=== PATIENT | male | born 1945 | race Caucasian/White ===

== ENCOUNTER → 2023-06-12 08:02 | Outpatient (REF) | payer OTHER, SELFPAY | LOC: DHCBS HW 08:02 | PROVIDERS: ATTENDING PHYSICIAN Nuclear Medicine Nuclear Cardiology; FAMILY PHYSICIAN Family Medicine | DX: I35.0 Nonrheumatic aortic (valve) stenosis (principal); I10 Essential (primary) hypertension | CPT/HCPCS: 93306 ==

== ENCOUNTER → 2023-06-19 08:14 | Outpatient (REF) | payer OTHER, SELFPAY | LOC: RAD 08:14 | PROVIDERS: ATTENDING PHYSICIAN Nuclear Medicine Nuclear Cardiology; FAMILY PHYSICIAN Family Medicine | DX: I77.9 Disorder of arteries and arterioles, unspecified (principal) | CPT/HCPCS: 93880 ==

== ENCOUNTER → 2024-01-01 07:44 | Outpatient (REF) | payer OTHER, SELFPAY | LOC: HWRCS 07:44 | PROVIDERS: ATTENDING PHYSICIAN Nuclear Medicine Nuclear Cardiology; FAMILY PHYSICIAN Family Medicine | DX: I10 Essential (primary) hypertension (principal); I35.0 Nonrheumatic aortic (valve) stenosis | CPT/HCPCS: 93306 ==

== ENCOUNTER → 2024-02-16 06:38 | Day surgery (SDC) | payer OTHER, SELFPAY ==
--- NOTE | 2024-02-17 09:00 | ITS.CL.CARDI ---
Care Coordinator - Cardioversion
Cardioversion
Procedure Report:
Cardioversion
Procedure Report:
Date of Procedure: 02/16/24
Procedure: Cardioversion
Indication: Symptomatic atrial fibrillation
Performing Physician: Earlene Noyola DO [facility]
Anticoagulation: Xarelto
Technique: The patient was brought to the holding area. Signed informed consent was obtained. A time out was called and performed. The patient was anesthetized by the anesthesia service. Anticoagulation status was reviewed and appropriate. R2 pads
were placed anteriorly and posteriorly. A 200 J synchronized biphasic shock restored normal sinus rhythm without significant bradycardia. There were no complications.
Conclusion: Uncomplicated cardioversion from atrial fibrillation to sinus rhythm.
Recommendation: Routine post cardioversion care. Continue intermodal dispatcher anticoagulation.
== END ==
LOC: CATH 06:38
PROVIDERS: ATTENDING PHYSICIAN Internal Medicine Cardiovascular Disease; FAMILY PHYSICIAN Family Medicine; OTHER PHYSICIAN Nuclear Medicine Nuclear Cardiology
DX: I48.0 Paroxysmal atrial fibrillation (principal); R06.02 Shortness of breath; I35.0 Nonrheumatic aortic (valve) stenosis; I10 Essential (primary) hypertension; E78.5 Hyperlipidemia, unspecified; E11.9 Type 2 diabetes mellitus without complications; Z86.73 Personal history of transient ischemic attack (TIA), and cerebral infarction without residual deficits; Z79.82 Long term (current) use of aspirin; Z79.01 Long term (current) use of anticoagulants
CPT/HCPCS: 92960; 93005

== ENCOUNTER 2024-02-17 10:29 | Inpatient (IN) | payer OTHER, SELFPAY ==
[2024-02-17] VITALS (8 sets, daily range): BP systolic 118–179; BP diastolic 38–87; BMI 43.5; BMI 40.8
--- NOTE | 2024-02-17 08:24 | ED.GENMED ---
History of Present Illness
General
Chief Complaint: Breathing Problem
Time Seen by Provider: 02/17/24 08:17
History of Present Illness
History of Present Illness:
78-year-old male with history of CHF, hypertension, hyperlipidemia, and aortic stenosis presents to the emergency department for evaluation of shortness of breath. He reports having a dry cough for the majority of the week but over the past 24
hours shortness of breath is increased. Denies chest pain. Tactile fevers last night. Of note the patient underwent a cardioversion at this hospital yesterday and has been off his furosemide for 1 week as a result. Is anticoagulated on Xarelto.
Denies any leg swelling.
Past History
Past History
ED Past Medical History: HTN, Hypercholesterolemia, Valvular disease and Other (prostate)
ED Past Surgical History: Other (Hernia/fistulectomy)
Social History
Tobacco: Non-smoker
Personal:
Living: with family
Employment: Retired
Review of Systems
Review of Systems
Allergies reviewed?: Yes
All Other Systems: ROS reviewed and negative except as documented in HPI and ROS
Phy Exam
Physical Exam
Physical Exam:
GEN: Well appearing, NAD, WDWN
HEENT: Oral mucosa moist, no scleral icterus
Cardiac: Mildly tachycardic, slight irregularity, systolic murmur noted
Lung: Tachypneic, no accessory muscle use, clear upper tavares, bibasilar crackles noted
MSK: No gross deformity or injuries
Skin: Good color, no pallor or jaundice, no rashes
Neuro: AO x3, moves all extremities freely
Psych: Calm, cooperative
Scores
Heart Failure Risk
Heart Failure Risk Score: Yes
History of Stroke or TIA: No
History of intubation for respiratory distress: No
Heart rate on ED arrival >/= 110: Yes
SaO2 <90% on arrival on room air: Yes
HR >/=110 during 3min walk test (or too ill to perform test): Yes
ECG has acute ischemic changes: No
Urea >/=12mmol/L (BUN 33.6mg/dL): No
Serum CO2>/=35mmol/L: No
Troponin I or T elevated to [place] Level (0.4mg/dL): Yes
NT-proBNP >/=5,000ng/L (5,000pg/ml): No
HF Risk Score: 5
Admission Status: VERY HIGH RISK 39.8% Consider admission to hospital
Course
Orders/Labs/Results
Orders:
Orders
02/17/24 08:20
Electrocardiogram (*1) Urgent
Reason for Study: Chest Pain
EKG- Treatment ONCE
02/17/24 08:22
Complete Blood Count/With Diff Urgent
Comprehensive Metabolic Panel Urgent
NT-proBNP Urgent
Troponin I Urgent
02/17/24 08:24
CR Chest - 2 Views Urgent
Comment:
Reason For Exam: SOB
02/17/24 08:26
COVID-19 Antigen Urgent
Source: Nasal Swab
Influenza A+B Rapid Molecular Urgent
RACH Source: Nasal Swab
Specimen Description:
02/17/24 08:27
Add On- LAB Urgent
Tests Added?: troponin
02/17/24 08:54
Furosemide [Lasix] 40 mg IV NOW STA
02/17/24 Lunch
Regular
At Your Request: Full Participation
02/17/24 10:14
Admit/Transfer Patient As Directed
Co-Sign Provider:
Level of Care: Inpatient admission
Assign to:: IVU
Physician / Group: Lisa
Diagnosis: Acute CHF
Reason for Hospitalization: IV Lasix, cardiology consult
Expected length of stay greater than two midnights?: Yes
ELOS- Estimated Length of Stay in days: 3
I certify the patient meets the requirements for IP care: Yes
PRN Pain Medication Management As Directed
May give lesser potent ordered pain med per pt: Yes
preference::
Protocol:: Medication orders for pain may be administered in a
manner that supports deferring to patient preference
when the pt is:
- Requesting an ordered lesser potent pain medication.
Least to most potent pain medications are defined
as: acetaminophen < NSAID < tramadol < opioids
(morphine, oxycodone, hydromorphone).
- Requesting a lesser dose of the same medication IF
ORDERED.
- Requesting a less intrusive route of administration
if both routes are prescribed by the provider (PO <
IV).
02/17/24 10:16
Code Status As Directed
Resuscitation Status: Full Code
02/17/24 14:57
Acetaminophen [Tylenol] 650 mg PO Q6HPRN PRN
Guaifenesin [Mucinex] 600 mg PO NOW STA
02/17/24 14:57
CARDIOLOGY CONSULT Routine
Consulting Provider: Fish Nielson
Was physician already notified: Yes
Activity As Directed
Activity Level: With Assistance
I&O [Intake/ Output] As Directed
Frequency: q12h
Acapella [Rx Pep / Acapela] [RESP] Routine
02/17/24 15:39
Troponin I Q6H
02/17/24 16:00
Furosemide [Lasix] 40 mg IV BID AT 0800,1600
02/17/24 18:00
Rivaroxaban [Xarelto] 20 mg PO QPM
02/17/24 20:00
Guaifenesin [Mucinex] 600 mg PO Q12
02/17/24 20:57
Troponin I Q6H
02/18/24 02:57
Troponin I Q6H
02/18/24 06:00
BMP [Basic Metabolic Panel] IN AM
02/19/24 06:00
BMP [Basic Metabolic Panel] IN AM
02/20/24 06:00
BMP [Basic Metabolic Panel] IN AM
02/20/24 11:00
DC Protocol for Telemetry ONCE
Abnormal Lab Results
02/17/24
08:22
MCHC 32.6 L g/dL
(33.0-37.0)
Absolute Lymphs (auto) 0.6 L 10^3/uL
(1.2-3.4)
Neutrophils % 80.2 H %
(42.2-75.2)
Lymphocytes % 9.7 L %
(20.5-51.1)
Glucose 129 H mg/dl
(70-99)
Troponin I 0.067 H* ng/ml
02/17/24 08:22
02/17/24 08:22
Vital Signs
Initial and Last Documented VS:
Initial Vital Signs
Temp Pulse Resp Pulse Ox
99 F 106 26 90
02/17/24 08:15 02/17/24 08:15 02/17/24 08:15 02/17/24 08:15
Last Documented Vital Signs
Temp Pulse Resp BP Pulse Ox
98.2 F 86 24 160/81 97
02/17/24 15:05 02/17/24 15:00 02/17/24 15:05 02/17/24 15:05 02/17/24 16:14
MDM/Problems Addressed
MDM/Problems Addressed:
78-year-old male presents with acute shortness of breath. Found to be in acute decompensated CHF evidenced by bibasilar crackles, elevated troponin and BNP, and pulmonary edema/vascular congestion on chest x-ray. Patient had been off Lasix for
several days leading up to ED visit today. Will admit as he is requiring supplemental oxygen, not appropriate for outpatient management. Avoiding nitrates despite his hypertension due to history of moderate aortic stenosis.
Comment
Comment:
EKG independently interpreted by me shows a normal sinus rhythm at a rate of 86, LVH changes suggested by lateral T wave inversions, left bundle branch block noted
*Critical Care Note
Total Time (30-74mins, 75-104mins- exclusive of procedures): Not Applicable
ED Attending Note
-
Portions of this chart may have been created with voice recognition software.� Occasional wrong word or��sound alike� substitutions may have occurred due to the inherent limitations of voice recognition software.
Discharge Plan
Departure
Patient Disposition: Admit
Date of Disposition: 02/17/24
Time of Disposition: :
Admit to: Telemetry
Presentation/result/management discussed w/ accepting MD/DO: Hospitalist
Discharge Problem:
Acute heart failure with preserved ejection fraction (HFpEF)
Interventions
Interventions:
*Risk Screen - Suicide Last Done: 02/17/24 15:43
*General Assessment Last Done: 02/17/24 08:15
*Neglect/Abuse Screening Last Done: 02/17/24 08:15
*ED COVID-19 Vaccine History Last Done: 02/17/24 08:27
*Nursing Disposition Last Done: 02/17/24 15:08
ED- Cardiac Assessment Last Done: 02/17/24 10:00
ED- Pulmonary Assessment Last Done: 02/17/24 10:00
Discharge Date and Time
Discharge Date/Time: 02/17/24 15:09
[2024-02-17 08:30] LABS: % Basophils 0.7 % (0-2); % Eosinophils 1.4 % (0-6); % Immature Granulocytes 0.4 % (0-0.5); % Lymphocytes 9.7 % (20.5-51.1); % Monocytes 7.6 % (1.7-9.3); % Neutrophils 80.2 % (42.2-75.2); Absolute Eosinophils 0.1 10^3/uL (0-0.7); Absolute Lymphocytes 0.6 10^3/uL (1.2-3.4); Absolute Monocytes 0.4 10^3/uL (0.1-0.6); Absolute Neutrophils 4.6 10^3/uL (1.4-6.5); Hematocrit 43.6 % (39.0-52.0); Hemoglobin 14.2 g/dL (13.0-18.0); Mean Corp Hgb Conc. 32.6 g/dL (33.0-37.0); Mean Corpuscular Hgb 27.4 pg (27.0-31.0); Mean Corpuscular Volume 84.2 fL (80.0-94.0); Mean Platelet Volume 8.9 fL (7.4-10.4); Nucleated Red Blood Cells % 0 % (-); Platelet Count 199 10^3/uL (130-400); Red Blood Cell Count 5.18 10^6/uL (4.70-6.10); White Blood Cell Count 5.7 10^3/uL (4.8-10.8)
[2024-02-17 08:40] LABS: ALT (SGPT) 22 U/L (0-50); AST (SGOT) 30 U/L (17-59); Albumin 3.9 g/dl (3.5-5.0); Alkaline Phosphatase 114 U/L (38-126); Blood Urea Nitrogen 20 mg/dl (9-20); Calcium 9.1 mg/dl (8.4-10.2); Carbon Dioxide 26 mmol/L (22-30); Chloride 103 mmol/L (98-107); Estimated Creatinine Clearance 84 ml/min; Glucose 129 mg/dl (70-99); Potassium 4.2 mmol/L (3.5-5.1); Sodium 137 mmol/L (135-145); Total Bilirubin 1.2 mg/dl (0.2-1.3); Total Protein 6.8 g/dl (6.3-8.2); eGFR > 60.00
[2024-02-17 08:54] LABS: NT-proBNP 2260 pg/ml; Troponin I 0.067 ng/ml
[2024-02-17] MEDS: LASIX 40 MG IV ×2 (09:06→15:53)
[2024-02-17 09:17] LABS: COVID-19 Antigen Negative (Negative)
--- NOTE | 2024-02-17 10:19 | HPS.HSE ---
Family Physician
-
Family Physician: Keyla Perez
Chief Complaint
-
Shortness of breath, cough
History of Present Illness
78-year-old male here complaining of shortness of breath for the past 24 hours. Just had a cardioversion yesterday and felt okay but subsequently developed shortness of breath at home. Not clear why he has been off Lasix all week.
Also complaining of cough for the past week. Denies any sick contacts.
Medical History
Past Medical History
Past Medical History: Reports Other
Additional Past Medical History:
Moderate to severe aortic stenosis
Paroxysmal atrial fibrillation
Hyperlipidemia
Essential hypertension
TIA
BPH
DM2
Past Surgical History: Reports Other
Additional Past Surgical History:
Hernia repair
Fistulectomy as a teenager
Social History
Tobacco: Former Smoker
Alcohol: Occasional
Drug: None
Personal:
Living: With Family
Family History
Family History: Not pertinent
Allergies / Home Medications
Allergies reflects when Allergies were last updated in [facility].
Home Medications with original date entered in [facility]
Allergy/Medication List:
Allergies
Allergy/AdvReac Type Severity Reaction Status Date / Time
NKA - No Known Allergies Allergy Unknown Uncoded 02/17/24 08:19
Home Medications
aspirin 81 mg tablet,delayed release 81 mg PO QPM Blood clot prevention/tx 11/19/13
terazosin 5 mg capsule 5 mg PO DAILY Blood pressure 11/19/13
calcium polycarbophil 625 mg tablet (Fiber-Tabs) 625 mg PO HS Constipation 09/01/18
cholecalciferol (vitamin D3) 25 mcg (1,000 unit) tablet 1,000 units PO DAILY Supplement 09/01/18
carvedilol 12.5 mg tablet 12.5 mg PO BID Blood pressure 12/26/20
finasteride 5 mg tablet 5 mg PO DAILY Urinary issue 12/26/20
valsartan 80 mg tablet 320 mg PO DAILY Blood pressure 12/26/20
rivaroxaban 20 mg tablet (Xarelto) 20 mg PO QPM Blood clot prevention/tx #30 tabs 12/29/20
multivit,calcium,min-folic acid 240 mcg-D3 25 mcg-lycop 300 mcg tablet (One A Day Men Complete) 1 tab PO DAILY 03/17/23
atorvastatin 20 mg tablet 40 mg PO QPM High cholesterol 02/16/24
Review of Systems
-
History Source: Patient
A 12 point ROS was completed and negative except as noted: Yes
Physical Exam
Vital Signs
Vital Signs
Temp Pulse Resp BP Pulse Ox
99 F 106 26 179/87 96
02/17/24 08:15 02/17/24 08:15 02/17/24 08:15 02/17/24 08:20 02/17/24 08:20
Physical Exam
General: Well Developed, Well Nourished and Respiratory Distress
HEENT: NormoCephalic, Anicteric and Moist mucous membranes
Respiratory: Rales and Decreased Breath Sounds
Cardiac: S1/S2 and Regular Rhythm
GI: Soft, Non Tender and Non Distended
Genito-urinary: Deferred by me
Musculoskeletal: No Clubbing, No Cyanosis, Edema, Left Lower Extremity and Edema, Right Lower Extremity
Skin: Warm and Dry
Neuro: AO x 3
Hematologic/Lymphatic: No Lymphadenopathy
Psych: Calm
Laboratory Results
-
02/17/24 08:22
02/17/24 08:22
Laboratory Results
Total Bilirubin 1.2 mg/dl (0.2-1.3) 02/17/24 08:22
AST 30 U/L (17-59) 02/17/24 08:22
ALT 22 U/L (0-50) 02/17/24 08:22
Alkaline Phosphatase 114 U/L (38-126) 02/17/24 08:22
Troponin I 0.067 ng/ml H* 02/17/24 08:22
Impression/Plan
-
Acute hypoxic respiratory insufficiency -due to acute pulmonary edema, acute heart failure exacerbation. Currently on 4 L nasal cannula oxygen.
Acute on chronic heart failure with preserved EF -likely due to missed doses of Lasix at home. Admit to telemetry, continue IV Lasix, consult cardiology. Check echocardiogram on Monday. BNP 2059.
Acute bronchitis -COVID and influenza negative. Treat supportively. Acapella, Mucinex.
Troponin elevation -suspect acute nonischemic myocardial injury due to heart failure exacerbation. Will trend troponins. Denies chest pain. EKG shows sinus rhythm with first-degree AV block.
Essential hypertension -blood pressure elevated, likely due to heart failure, volume overload. Please update home medication list.
Hyperlipidemia
Paroxysmal atrial fibrillation -underwent successful cardioversion 02/15 to sinus rhythm. Continue Xarelto.
DM2 without hyperglycemia -appears to be diet controlled. Glucose 129 this morning.
Morbid obesity due to excess calories
Full code
updated at the bedside.
--- NOTE | 2024-02-17 11:52 | CON.CAR ---
Addendum entered and electronically signed by Fish Nielson DO 02/17/24 12:35:
I saw and examined the patient.
The Salesperson [employer]'s note was reviewed and I agree with the note.
Comment:
Briefly, patient is a pleasant 78-year-old male with a past medical history significant for moderate to severe , diabetes mellitus type 2, hypertension, hyperlipidemia, history TIA on chronic Plavix, PAF on Xarelto who presents with worsening
shortness of breath found to be in acute on chronic heart failure with preserved ejection fraction. BNP noted to be mildly elevated at 2260, chest x-ray demonstrated evidence of fluid overload. Troponin mildly elevated 0.067. EKG sinus rhythm.
Of note, patient had cataract surgery at the beginning of this week and his Lasix was held. He reported worsening cough and shortness of breath over the subsequent week. Patient underwent cardioversion on 02/16/2024 for atrial fibrillation.
Patient presenting again in sinus rhythm. Patient reports no interruption with oral anticoagulation.
GENERAL: no acute distress, nasal cannula, mild conversational dyspnea
EYE: sclera anicteric
NECK: Supple, no JVD appreciated due to habitus, no carotid bruit appreciated
ENT: normal nose, moist mucosal membranes
CARDIAC: Regular rate and rhythm, +S1/S2, no murmur, rubs, or gallops
CHEST/PULMONARY: Bibasilar crackles, no rhonchi or rails
ABDOMEN: Soft, without focal tenderness; mild distention
NEUROLOGICAL: Alert and oriented x3
SKIN: Warm and dry, no rash; 1�2+ pitting edema bilateral lower extremity
PSYCH: Normal and appropriate interaction.
A/P as below
Trend troponin to peak, likely elevated in the setting of patient's acute on chronic heart failure with preserved ejection fraction
IV diuretic therapy, Lasix 40 mg IV twice daily, monitor intake and output, weight
Monitor renal function, electrolytes, replete for goal potassium greater than 4, magnesium greater than 2
Continue outpatient beta-ángel and ARB; possible addition of Aldactone or SGLT2 when nearing discharge
Monitor on telemetry
Will follow
Original Note:
Consultation
Consultation Request
Date/Time Consultation Requested: 02/17/24
Date/Time Consultation Performed: 02/17/24
Requesting Provider: Dr. Gonzalez
Performing Provider: Dr. Nielson
Reason for Consultation: Acute HF
Medical History
-
History of Present Illness:
Patient came to ER today with increased SOB and is now being admitted with acute HF and cardiology has been consulted. Patient was seen in cardiology office on 02/07/2024 with complaints of ongoing atrial fibrillation. His heart rate was
controlled with his usual dose of Coreg and he had not missed any doses of Xarelto so the plan was made to attempt a CV on 02/16/2024. Patient has known paroxysmal A-fib. He had CV 02/16/2024 and was successfully CV to sinus rhythm. Patient came
to ER now with increased SOB and orthopnea is being minimal with acute HF. In retrospect he feels like for the last week or so he had SOB and increased LE edema and things got much worse overnight. He denies any chest pain or palpitations. He
says he has been compliant with his usual dose of Lasix 20 mg every other day. His EF was preserved to 57% by last echo 12/24/2023, but he does have moderate to severe .
PMH:
Paroxysmal Afib
Chronic Xarelto OAC
Moderate to severe peak/mean 58/34 mmHg and RINKU 0.8 cm sq by echo 01/01/24
DM 2
HTN
Hyperlipidemia
Chronic Plavix for h/o TIA 2013
Past Medical History
Past Medical History: Other (in HPI)
Past Surgical History: Other (anal fistulectomy)
Social History
Tobacco: Former Smoker
Alcohol: None
Drug: None
Personal:
Living: With Family
Family History
Family History: CAD
Allergies / Home Medications
Allergy/AdvReac Type Severity Reaction Status Date / Time
NKA - No Known Allergies Allergy Unknown Uncoded 02/17/24 08:19
�Medication �Instructions �Recorded �Confirmed �Type
aspirin 81 mg tablet,delayed 81 mg PO QPM Blood clot 11/19/13 02/16/24 History
release prevention/tx
terazosin 5 mg capsule 5 mg PO DAILY Blood pressure 11/19/13 02/16/24 History
calcium polycarbophil 625 mg 625 mg PO HS Constipation 09/01/18 02/16/24 History
tablet (Fiber-Tabs)
cholecalciferol (vitamin D3) 25 1,000 units PO DAILY Supplement 09/01/18 02/16/24 History
mcg (1,000 unit) tablet
carvedilol 12.5 mg tablet 12.5 mg PO BID Blood pressure 12/26/20 02/16/24 History
finasteride 5 mg tablet 5 mg PO DAILY Urinary issue 12/26/20 02/16/24 History
valsartan 80 mg tablet 320 mg PO DAILY Blood pressure 12/26/20 02/16/24 History
rivaroxaban 20 mg tablet (Xarelto) 20 mg PO QPM Blood clot 12/29/20 02/16/24 Rx
prevention/tx #30 tabs
multivit,calcium,min-folic acid 1 tab PO DAILY 03/17/23 02/16/24 History
240 mcg-D3 25 mcg-lycop 300 mcg
tablet (One A Day Men Complete)
atorvastatin 20 mg tablet 40 mg PO QPM High cholesterol 02/16/24 02/16/24 History
Review of Systems
-
History Source: Patient and Family
All other systems: Negative unless noted
Physical Exam
Vital Signs
Temp Pulse Resp BP Pulse Ox
99 F 106 26 179/87 96
02/17/24 08:15 02/17/24 08:15 02/17/24 08:15 02/17/24 08:20 02/17/24 08:20
GEN: AAOx3
HEENT: mmm
LUNGS: 2 L NC. Bibasilar rales
CV: SR on tele. Reg, S1/S2, no murmur
ABD: soft, BS+, NT, ND
EXT: No clubbing, cyanosis, lesions B/L. +2 pitting B/L LE edema
NEURO: Gross non-focal
SKIN: No rash
Lab Results
02/17/24 08:22
02/17/24 08:22
Troponin I 0.067 ng/ml H* 02/17/24 08:22
Nhb-B-[id number] Pept 2260 pg/ml 02/17/24 08:22
Impression / Plan
-
PCP: Dr. Perez
Cardiology: Dr. Dumont
Impression:
Admitted with acute HFpEF 02/17/24
s/p recent CV for paroxysmal Afib 02/16/24
Paroxysmal Afib
Chronic Xarelto OAC
Moderate to severe peak/mean 58/34 mmHg and RINKU 0.8 cm sq by echo 01/01/24
DM 2
HTN
Hyperlipidemia
Chronic Plavix for h/o TIA 2013
Cath 12/28/20: Chronic total occlusion of the right coronary artery with bridging right to right collaterals and left to right collaterals noted to fill the distal vessel and moderate coronary disease in the mid circumflex with the iFR measuring
just above the ischemic threshold
Echo 08/06/20: EF 70-75%, mod conc LVH, moderate peak/mean 43/27 mmHg and RINKU 0.9 cm sq, trace aortic regurgitation. Wall thickness 1.5 cm.
Echo 12/24/2023: EF 57%, mild concentric LVH, mild MR, moderate to severe peak/mean 58/34 mmHg and RINKU 0.8 cm SQ, mild aortic regurgitation
Plan:
-Patient came to ER today with increased SOB and is now being admitted with acute HF and cardiology has been consulted. Patient was seen in cardiology office on 02/07/2024 with complaints of ongoing atrial fibrillation. His heart rate was
controlled with his usual dose of Coreg and he had not missed any doses of Xarelto so the plan was made to attempt a CV on 02/16/2024. Patient has known paroxysmal A-fib. He had CV 02/16/2024 and was successfully CV to sinus rhythm. Patient came
to ER now with increased SOB and orthopnea is being minimal with acute HF. In retrospect he feels like for the last week or so he had SOB and increased LE edema and things got much worse overnight. He denies any chest pain or palpitations. He
says he has been compliant with his usual dose of Lasix 20 mg every other day. His EF was preserved to 57% by last echo 12/24/2023, but he does have moderate to severe .
-Agree with admission and was able to procure have a bed in the IVU given recent CV and family request.
-ECG reviewed by me shows SR 02/17/2024.
-proBNP 2260 and evidence of CHF on CXR. Symptoms seem to predate CV and then got worse thereafter. Agree with admission and IV diuresis. Recommend Lasix 40 mg IV twice daily. Patient was taking Lasix 20 mg every other day prior to admission and
might need Lasix 20 mg daily at time of discharge.
-Continue outpatient dose of Coreg 12.5 mg twice daily
-Continue outpatient dose of valsartan 320 mg daily
-EF is preserved, but could consider adding spironolactone as BP and renal function permit
-Consider adding SGLT2 inhibitor pending further discussion with patient
-Patient remains in SR following CV 02/16/2024
-Continue usual dose of Xarelto 20 mg daily
-Patient was previously managed with amiodarone, but this was stopped 03/2022 due to dizziness and near syncope
-Initial troponin 0.067 and will trend. No complaints of chest pain and no ischemic changes on ECG. This is likely nonischemic myocardial injury troponin elevation due to acute HF
[2024-02-17] MEDS: MUCINEX 600 MG PO ×2 (15:18→19:39)
--- NOTE | 2024-02-17 16:17 | PTCARENOTE ---
Rec'd pt from ED. Tele- SR 80s. Assessment completed as documented. Pt has no c/o at this time. Pt able to answer admission questions approp. Oriented pt to unit. Spouse at bedside. Currently sitting at side of bed; call margi w/in reach.
[2024-02-17 16:22] LABS: Troponin I 0.157 ng/ml
--- NOTE | 2024-02-17 17:00 | CHAP ---
Msgr. Johan Douglass of [facility] [place] gave [place] Holy Communion and the Sacrament of the Sick. Time uncertain.
[2024-02-17] MEDS: XARELTO 20 MG PO (17:21)
[2024-02-17] MEDS: PRED FORTE 1% EYE DROPS 1 DROP RIGHT EYE ×2 (17:22→21:09)
[2024-02-17 22:08] LABS: Troponin I 0.202 ng/ml
--- NOTE | 2024-02-18 01:34 | PTCARENOTE ---
Received pt at change of shift. SR on the monitor, HR in the 70s. 95% on 3L. VSS. Educated pt on monitoring intake and output with CHF, pt verbalizes understanding. No complaints from pt at this time, call kiser within reach.
[2024-02-18 03:04] VITALS: BP 115/87
[2024-02-18 04:03] LABS: Blood Urea Nitrogen 25 mg/dl (9-20); Calcium 8.4 mg/dl (8.4-10.2); Carbon Dioxide 30 mmol/L (22-30); Chloride 100 mmol/L (98-107); Estimated Creatinine Clearance 74 ml/min; Glucose 100 mg/dl (70-99); Potassium 3.8 mmol/L (3.5-5.1); Sodium 136 mmol/L (135-145); eGFR > 60.00
[2024-02-18 04:18] LABS: Troponin I 0.198 ng/ml
[2024-02-18 05:52] VITALS: BMI 41.7
[2024-02-18 07:49] VITALS: BP 127/58
[2024-02-18] MEDS: LASIX 40 MG IV ×2 (08:29→16:19)
[2024-02-18] MEDS: LOW STRENGTH ASPIRIN 81 MG PO (08:30)
[2024-02-18] MEDS: HYTRIN 5 MG PO (08:30)
[2024-02-18] MEDS: COREG 3.125 MG PO ×2 (08:30→20:03)
[2024-02-18] MEDS: MUCINEX 600 MG PO ×2 (08:30→20:03)
[2024-02-18] MEDS: PRED FORTE 1% EYE DROPS 1 DROP RIGHT EYE ×4 (08:31→22:06)
[2024-02-18] MEDS: PROSCAR 5 MG PO (08:31)
--- NOTE | 2024-02-18 09:16 | W.PN.HOSP.TC ---
Addendum entered and electronically signed by Adam Mccoy MD 02/18/24 15:19:
Addendum
CT chest no definitive infiltrate of pneumonia but c/w bronchitis, I d/w pt and his at bed side, he feels the same despite Lasix, will give IV Rocephin
End
Original Note:
Today's Communication/Plan
-
Cough work up including CT chest
c/w Lasix, add KCl since Diovan on hold due to low BP ( might restart but lower dose?)
resume BPH medications
Resume Coreg this morning but lower the dose
Assessment / Plan
Assessment / Plan
Physical Exam
General: not in distress, obese
HEENT: Normocephalic, Anicteric and Moist mucous membranes
Respiratory: Rales and expiratory wheezes.
Cardiac: S1/S2
GI: Soft, Non Tender and Non Distended
Genito-urinary: no hematuria
Musculoskeletal: No Clubbing, No Cyanosis,
Skin: Warm and Dry
Neuro: AO x 3, he followed commands
Psych: Calm
A/P
# Acute hypoxic respiratory insufficiency -due to acute pulmonary edema, acute heart failure exacerbation. Currently on 4 L nasal cannula oxygen. Acute on chronic heart failure with preserved EF -likely due to missed doses of Lasix at home.
c/w IV Lasix, add potassium
continue to hold Diovan to tolerate Lasix without hypotension, might restart but lower dose?
Resume Coreg but lower the dose as BP & HR tolerate
Daily weight Check echocardiogram on Monday. BNP 2059. Lost weight over night
# Acute bronchitis -COVID and influenza negative. Treat supportively. Acapella, Mucinex.
Still cough with congestion
Will do CT chest to r/o infiltrates
# Troponin elevation -suspect acute nonischemic myocardial injury due to heart failure exacerbation. Denies chest pain. EKG shows sinus rhythm with first-degree AV block.
# Essential hypertension -
Resume home medications.
#Hyperlipidemia
#Paroxysmal atrial fibrillation -underwent successful cardioversion 02/15 to sinus rhythm. Continue Xarelto. Resume Coreg but lower the dose as BP & HR are low
# He denies diabetes history
#Morbid obesity due to excess calories
# Full code
# BPH, resume home meds
Total time spent to see the patient on the floor, examine the patient, review data and lab results, discuss treatment plan with patient, nursing staff around 55 minutes.
Anticipated Discharge: > 48 hours
Subjective/Interval History
-
Date of Service: February 18, 2024
No chest pain
No sob
Reports cough and nasal congestion
Objective Data
-
Labs:
Laboratory Results
02/18/24
03:14
Sodium 136
Potassium 3.8
Chloride 100
Carbon Dioxide 30
BUN 25 H
Creatinine 1.1
Glucose 100 H
Calcium 8.4
Vital Signs:
Vital Signs
Temp Pulse Resp BP Pulse Ox
98.4 F 73 20 127/58 98
02/18/24 07:46 02/18/24 08:30 02/18/24 07:46 02/18/24 08:30 02/18/24 07:46
I&O
02/17/24 02/18/24 02/19/24
06:59 06:59 06:59
Intake Total 300 / 300
Output Total 2910 / 2910
Balance -2610 / -2610
[2024-02-18 11:22] VITALS: BP 104/61
[2024-02-18] MEDS: TESSALON PERLES 200 MG PO ×2 (11:22→22:06)
--- NOTE | 2024-02-18 15:11 | W.PN.CARDCBS ---
Today's Communication / Plan
-
Continue IV diuresis
Agree with CT scan
Beta-ángel for now; ARB on hold due to low blood pressure
Replete electrolytes
Impression / Plan
-
PCP: Dr. Perez
Cardiology: Dr. Dumont
Impression:
Admitted with acute HFpEF 02/17/24
s/p recent CV for paroxysmal Afib 02/16/24
Paroxysmal Afib
Chronic Xarelto OAC
Moderate to severe peak/mean 58/34 mmHg and RINKU 0.8 cm sq by echo 01/01/24
DM 2
HTN
Hyperlipidemia
Chronic Plavix for h/o TIA 2013
Cath 12/28/20: Chronic total occlusion of the right coronary artery with bridging right to right collaterals and left to right collaterals noted to fill the distal vessel and moderate coronary disease in the mid circumflex with the iFR measuring
just above the ischemic threshold
Echo 08/06/20: EF 70-75%, mod conc LVH, moderate peak/mean 43/27 mmHg and RINKU 0.9 cm sq, trace aortic regurgitation. Wall thickness 1.5 cm.
Echo 12/24/2023: EF 57%, mild concentric LVH, mild MR, moderate to severe peak/mean 58/34 mmHg and RINKU 0.8 cm SQ, mild aortic regurgitation
Plan:
-Patient came to ER 02/17/2024 with increased SOB and is now being admitted with acute HF and cardiology has been consulted. Patient was seen in cardiology office on 02/07/2024 with complaints of ongoing atrial fibrillation. His heart rate was
controlled with his usual dose of Coreg and he had not missed any doses of Xarelto so the plan was made to attempt a CV on 02/16/2024. Patient has known paroxysmal A-fib. He had CV 02/16/2024 and was successfully CV to sinus rhythm. Patient came
to ER now with increased SOB and orthopnea is being minimal with acute HF. In retrospect he feels like for the last week or so he had SOB and increased LE edema and things got much worse overnight. He denies any chest pain or palpitations. He
says he has been compliant with his usual dose of Lasix 20 mg every other day. His EF was preserved to 57% by last echo 12/24/2023, but he does have moderate to severe .
-Agree with admission and was able to procure have a bed in the IVU given recent CV and family request.
-ECG reviewed by me shows SR 02/17/2024.
-proBNP 2260 and evidence of CHF on CXR. Symptoms seem to predate CV and then got worse thereafter. Agree with admission and IV diuresis. Recommend Lasix 40 mg IV twice daily. Patient was taking Lasix 20 mg every other day prior to admission and
might need Lasix 20 mg daily at time of discharge.
-Continue outpatient dose of Coreg 12.5 mg twice daily
-Continue outpatient dose of valsartan 320 mg daily
-EF is preserved, but could consider adding spironolactone as BP and renal function permit
-Consider adding SGLT2 inhibitor pending further discussion with patient
-Patient remains in SR following CV 02/16/2024
-Continue usual dose of Xarelto 20 mg daily
-Patient was previously managed with amiodarone, but this was stopped 03/2022 due to dizziness and near syncope
-Initial troponin 0.067 peak 0.2, downtrending. No complaints of chest pain and no ischemic changes on ECG. This is likely nonischemic myocardial injury troponin elevation due to acute HF
Progress Note - Fire Chief'S Aide
Subjective
Date of Service: February 18, 2024
Patient seen and examined. No acute events overnight. Patient reporting persistent productive cough without significant change in breathing. Denies chest pain, palpitations, or weakness. Patient with roughly 2.6 L output. Sinus rhythm on
telemetry.
Objective
Labs:
02/17/24 08:22
02/18/24 03:14
Labs
Hgb 14.2 g/dL (13.0-18.0) 02/17/24 08:22
Hct 43.6 % (39.0-52.0) 02/17/24 08:22
Plt Count 199 10^3/uL (130-400) 02/17/24 08:22
Sodium 136 mmol/L (135-145) 02/18/24 03:14
Potassium 3.8 mmol/L (3.5-5.1) 02/18/24 03:14
BUN 25 mg/dl (9-20) H 02/18/24 03:14
Creatinine 1.1 mg/dL (0.7-1.3) 02/18/24 03:14
Glucose 100 mg/dl (70-99) H 02/18/24 03:14
Troponins
02/17/24 02/17/24 02/17/24
08:22 15:39 21:08
Troponin I 0.067 H* 0.157 H* D 0.202 H* D
02/18/24
03:14
Troponin I 0.198 H*
Vital Signs and I&O:
Vital Signs
Temp Pulse Resp BP Pulse Ox
98.4 F 73 20 127/58 97
02/18/24 11:19 02/18/24 08:30 02/18/24 11:19 02/18/24 08:30 02/18/24 11:19
Vital Signs
Temp Pulse Resp BP Pulse Ox
98.4 F 73 20 127/58 97
02/18/24 11:19 02/18/24 08:30 02/18/24 11:19 02/18/24 08:30 02/18/24 11:19
Intake & Output
02/16/24 02/17/24 02/18/24 02/19/24
06:59 06:59 06:59 06:59
Intake Total 300 / 300 480 / 480
Output Total 2910 / 2910 300 / 300
Balance -2610 / -2610 180 / 180
Physical Exam
Physical Exam
GENERAL: no acute distress
EGENERAL: no acute distress, nasal cannula, mild conversational dyspnea
EYE: sclera anicteric
NECK: Supple, no JVD appreciated due to habitus, no carotid bruit appreciated
ENT: normal nose, moist mucosal membranes
CARDIAC: Regular rate and rhythm, +S1/S2, no murmur, rubs, or gallops
CHEST/PULMONARY: Bibasilar crackles, no rhonchi or rails
ABDOMEN: Soft, without focal tenderness; mild distention
NEUROLOGICAL: Alert and oriented x3
SKIN: Warm and dry, no rash; 1�2+ pitting edema bilateral lower extremity
PSYCH: Normal and appropriate interaction.
[2024-02-18 15:38] VITALS: BP 123/56
[2024-02-18] MEDS: STERILE WATER FOR INJECTION 10 ML IV (16:19)
[2024-02-18] MEDS: ROCEPHIN 1000 MG IV (16:19)
[2024-02-18] MEDS: XARELTO 20 MG PO (17:50)
[2024-02-18] MEDS: DUONEB 3 ML INH ×2 (18:25→22:55)
--- NOTE | 2024-02-18 19:01 | PTCARENOTE ---
pt continues to be sr on the monitor, hr in the 80s, vss. pt c/o sob and wheezing, notified dr. gillis neb treatment ordered and given, see MAR. pt also c/o diarrhea, will check stool. pt educated on plan of care and pt verbalized understanding. call
kiser within reach.
[2024-02-18 19:39] VITALS: BP 125/51
[2024-02-18 22:11] VITALS: BP 127/53
[2024-02-19] VITALS (8 sets, daily range): BP systolic 93–159; BP diastolic 49–67; BMI 41.6
--- NOTE | 2024-02-19 02:32 | PTCARENOTE ---
received patient at the change of shift. AAOx3. resting in the chair. patient denies any pain. complaining of a cough-improved after neb treatment. dyspnea on exertion noted. trialed patient off of oxygen-tolerated when awake. 94-95% on RA. when
patient fell asleep- sp02 88-89%. placed patient back on 2L to sleep. SR on tele. bp stable. reviewed plan of care and verbalized understanding. calls appropriately.
patient stated a few episodes of 'diarrhea'. patient explains them as smears. educated patient of pending stool sample. hat in toilet.
[2024-02-19] MEDS: TESSALON PERLES 200 MG PO (04:26)
[2024-02-19] MEDS: DUONEB 3 ML INH (04:35)
--- NOTE | 2024-02-19 04:35 | PTCARENOTE ---
patient states not sleeping well overnight. increased harsh cough and audible wheeze noted. PRN Tessalon pearls given, see mar. notified respiratory therapist for a duoneb-see mar. patient sounds more congested this morning-nasally. added
humidification to nasal cannula. 97% on 2L.
[2024-02-19 05:14] LABS: Hematocrit 35.9 % (39.0-52.0); Hemoglobin 11.6 g/dL (13.0-18.0); Mean Corp Hgb Conc. 32.3 g/dL (33.0-37.0); Mean Corpuscular Hgb 26.8 pg (27.0-31.0); Mean Corpuscular Volume 82.9 fL (80.0-94.0); Mean Platelet Volume 9.7 fL (7.4-10.4); Platelet Count 173 10^3/uL (130-400); Red Blood Cell Count 4.33 10^6/uL (4.70-6.10); Red Cell Dist. Width 13.9 % (11.5-14.5); White Blood Cell Count 5.2 10^3/uL (4.8-10.8)
[2024-02-19 05:31] LABS: Blood Urea Nitrogen 29 mg/dl (9-20); Calcium 8.7 mg/dl (8.4-10.2); Carbon Dioxide 28 mmol/L (22-30); Chloride 101 mmol/L (98-107); Estimated Creatinine Clearance 82 ml/min; Glucose 86 mg/dl (70-99); Potassium 3.4 mmol/L (3.5-5.1); Sodium 136 mmol/L (135-145); eGFR > 60.00
--- NOTE | 2024-02-19 05:45 | PTCARENOTE ---
K 3.4 this morning. notified Ksenia Angulo NP. orders placed for 40 PO K- see may.
[2024-02-19] MEDS: KCL 40 MEQ PO (05:53)
--- NOTE | 2024-02-19 07:43 | W.PN.HOSP.TC ---
Today's Communication/Plan
-
Continue IV Lasix
Assessment / Plan
Assessment / Plan
Physical Exam
General: Not in acute distress, obese
HEENT: Normocephalic, Anicteric and Moist mucous membranes
Respiratory: Clear to Auscultation Bilaterally.
Cardiac: S1/S2. RRR.
GI: Soft, Non Tender and Non Distended. Positive bowel sounds.
Musculoskeletal: No cyanosis.
Skin: Warm and Dry
Neuro: AAO x 3, he followed commands
Psych: Calm
Assessment/Plan
# Acute hypoxic respiratory insufficiency -due to acute pulmonary edema, acute HFpEF exacerbation
Continue with IV Lasix 40 mg BID, additional 20 mg IV Lasix given today
Continue Coreg and Valsartan
Daily weight
Echocardiogram with preserved ejection fraction
#Aortic Stenosis
- TAVR eval consideration
- Will need close outpatient follow-up for this
# Acute bronchitis
-COVID and influenza negative. Treat supportively. Acapella, Mucinex.
Still cough with congestion
-Stop antibiotics
CT Chest with small to trace bilateral pleural effusions, and basilar posterior predominant groundglass opacities which are favored to show mild pulmonary edema and atelectasis, as per radiologist
Mild emphysematous change with circumferential bronchial wall thickening -- likely mild bronchitis
# Troponin elevation -suspect acute nonischemic myocardial injury due to heart failure exacerbation. Denies chest pain. EKG shows sinus rhythm with first-degree AV block.
# Essential hypertension -
Resume home medications.
#Hyperlipidemia
#Paroxysmal atrial fibrillation
#History of Amiodarone-Related Dizziness and Syncope
-underwent successful cardioversion 02/15 to sinus rhythm. Continue Xarelto.
-Continue Coreg
# He denies diabetes mellitus history
# BPH, resume home meds
#Morbid obesity due to excess calories
DVT Prophylaxis: Xarelto
Code Status: Full code
Anticipated Discharge: > 48 hours
Subjective/Interval History
-
Date of Service: February 19, 2024
Patient was seen and examined. He denied any new symptoms or complaints, no chest pain or shortness of breath.
Objective Data
-
Labs:
Laboratory Results
02/19/24
04:22
WBC 5.2
Hgb 11.6 L
Hct 35.9 L
Plt Count 173
Sodium 136
Potassium 3.4 L
Chloride 101
Carbon Dioxide 28
BUN 29 H
Creatinine 1.0
Glucose 86
Calcium 8.7
Vital Signs:
Vital Signs
Temp Pulse Resp BP Pulse Ox
97.8 F 59 20 159/65 96
02/19/24 07:19 02/19/24 05:30 02/19/24 07:19 02/19/24 04:15 02/19/24 07:19
I&O
02/18/24 02/19/24 02/20/24
06:59 06:59 06:59
Intake Total 300 / 300 730 / 730
Output Total 2910 / 2910 750 / 750
Balance -2610 / -2610 -20 / -20
--- NOTE | 2024-02-19 08:00 | PTCARENOTE ---
Assumed care of pt from prev nsg shift; Pt AAOx3 w/no c/o CP, but does report still being 'a little SOB'; Pt on 2L O2 via NC w/O2 sats of 96%. Pt's VS stable w/HR in the 60's & BP this AM 130/62. Pt is SR w/1st deg AV block on telemetry monitoring.
Pt w/callbell within reach & no addtl needs at this time.
--- NOTE | 2024-02-19 08:20 | W.PN.CARDCBS ---
Today's Communication / Plan
-
Cont IV lasix
Remains sinus s/p cv on Xarelto
Outpt eval for TAVR
Impression / Plan
-
.
PCP: Dr. Perez
Cardiology: Dr. Dumont
Impression:
Admitted with acute HFpEF 02/17/24
s/p recent CV for paroxysmal Afib 02/16/24
Paroxysmal Afib on chronic Xarelto OAC
Moderate to severe peak/mean 58/34 mmHg and RINKU 0.8 cm sq by echo 01/01/24
DM 2
HTN
Hyperlipidemia
Chronic Plavix for h/o TIA 2013
Cath 12/28/20: Chronic total occlusion of the right coronary artery with bridging right to right collaterals and left to right collaterals noted to fill the distal vessel and moderate coronary disease in the mid circumflex with the iFR measuring
just above the ischemic threshold
Echo 08/06/20: EF 70-75%, mod conc LVH, moderate peak/mean 43/27 mmHg and RINKU 0.9 cm sq, trace aortic regurgitation. Wall thickness 1.5 cm.
Echo 12/24/2023: EF 57%, mild concentric LVH, mild MR, moderate to severe peak/mean 58/34 mmHg and RINKU 0.8 cm SQ, mild aortic regurgitation
Plan:
Cont IV lasix 40 mg BID. Wt coming down slightly. Will give additional lasix 20 mg IV this AM Feb 18. He was taking lasix
pBNP 2260, HF on CXR at admit.
EF preserved, continue Coreg and Valsartan.
Given , now with HF, will need to consider TAVR eval.
He just had cv and will have to wait 4 weeks prior to cath as part of work up for .
Remains sinus after cv Feb 16 2024 and continues with Xarelto.
He had been on amiodarone in the past but this was stopped Mar 2022 due to dizziness and near syncope.
Cont med tx of nonMI trop
Cont supportive care of bronchitis. IV rocephin as per hospitalist.
HPI: -Patient came to ER 02/17/2024 with increased SOB and is now being admitted with acute HF and cardiology has been consulted. Patient was seen in cardiology office on 02/07/2024 with complaints of ongoing atrial fibrillation. His heart rate
was controlled with his usual dose of Coreg and he had not missed any doses of Xarelto so the plan was made to attempt a CV on 02/16/2024. Patient has known paroxysmal A-fib. He had CV 02/16/2024 and was successfully CV to sinus rhythm. Patient
came to ER now with increased SOB and orthopnea is being minimal with acute HF. In retrospect he feels like for the last week or so he had SOB and increased LE edema and things got much worse overnight. He denies any chest pain or palpitations.
He says he has been compliant with his usual dose of Lasix 20 mg every other day. His EF was preserved to 57% by last echo 12/24/2023, but he does have moderate to severe .
Progress Note - Cable Braider
Subjective
Date of Service: February 19, 2024
Pt seen and examined. still with cough.
Objective
Labs:
02/19/24 04:22
02/19/24 04:22
Labs
Hgb 11.6 g/dL (13.0-18.0) L 02/19/24 04:22
Hct 35.9 % (39.0-52.0) L 02/19/24 04:22
Plt Count 173 10^3/uL (130-400) 02/19/24 04:22
Sodium 136 mmol/L (135-145) 02/19/24 04:22
Potassium 3.4 mmol/L (3.5-5.1) L 02/19/24 04:22
BUN 29 mg/dl (9-20) H 02/19/24 04:22
Creatinine 1.0 mg/dL (0.7-1.3) 02/19/24 04:22
Glucose 86 mg/dl (70-99) 02/19/24 04:22
Troponins
02/17/24 02/17/24 02/17/24
08:22 15:39 21:08
Troponin I 0.067 H* 0.157 H* D 0.202 H* D
02/18/24
03:14
Troponin I 0.198 H*
Vital Signs and I&O:
Vital Signs
Temp Pulse Resp BP Pulse Ox
97.8 F 59 20 159/65 96
02/19/24 07:19 02/19/24 05:30 02/19/24 07:19 02/19/24 04:15 02/19/24 07:19
Vital Signs
Temp Pulse Resp BP Pulse Ox
97.8 F 59 20 159/65 96
02/19/24 07:19 02/19/24 05:30 02/19/24 07:19 02/19/24 04:15 02/19/24 07:19
Intake & Output
02/17/24 02/18/24 02/19/24 02/20/24
06:59 06:59 06:59 06:59
Intake Total 300 / 300 730 / 730
Output Total 2910 / 2910 750 / 750
Balance -2610 / -2610 -20 / -20
Physical Exam
Physical Exam
General: No acute distress, AAOX3
Neck: Negative JVD
Heart: Regular, Negative S3 positive S1/S2, Negative S4, NICKY grade II/
Lungs: CTA b/l, negative wheezes/rales/rhonchi
Abd: Positive BS, NT/ND, neg rebound/rigidity/guarding
Ext: Negative cyanosis/clubbing/edema
Neuro: nonfocal
[2024-02-19] MEDS: MUCINEX 600 MG PO ×2 (08:34→20:13)
[2024-02-19] MEDS: COREG 3.125 MG PO ×2 (08:34→21:33)
[2024-02-19] MEDS: HYTRIN 5 MG PO (08:34)
[2024-02-19] MEDS: LOW STRENGTH ASPIRIN 81 MG PO (08:34)
[2024-02-19] MEDS: PROSCAR 5 MG PO (08:35)
[2024-02-19] MEDS: LASIX 40 MG IV ×2 (08:35→17:19)
[2024-02-19] MEDS: PRED FORTE 1% EYE DROPS 1 DROP RIGHT EYE ×4 (08:35→21:32)
[2024-02-19] MEDS: FLUSH (NSS) 2 FLUSH IV ×2 (08:35→12:56)
[2024-02-19] MEDS: LASIX 20 MG IV (12:55)
[2024-02-19] MEDS: FLUSH (NSS) 3 FLUSH IV (17:19)
[2024-02-19] MEDS: STERILE WATER FOR INJECTION 10 ML IV (17:20)
[2024-02-19] MEDS: XARELTO 20 MG PO (17:21)
[2024-02-19] MEDS: ROCEPHIN 1000 MG IV (17:21)
--- NOTE | 2024-02-19 17:58 | CM ---
spoke to pt in room, francois sanches, [place] 2 storyhome with 2 steps to enter. he denies any dc planning needs. plan is for dc when medically stable.
--- NOTE | 2024-02-19 20:35 | PTCARENOTE ---
received patient at the change of shift. resting in the chair. denies any cp. + harsh cough at times. patient states he gets slightly short of breath when he has a coughing fit. 98% on 2L. complaining of nasal dryness/sore nose. some scant bloody
tissues. updated Ksenia Angulo CABLE INSTALLATION TECHNICIAN- nasal spray ordered, see may. Sr with a first degree AVB on tele 70s. bp stable. denies any lightheadedness/dizziness. reviewed plan of care with patient and verbalized understanding. ambulating independently. call
kiser within reach.
[2024-02-19] MEDS: OCEAN, SALINE MIST 50 SPRAYS NASAL (21:03)
[2024-02-20 04:25] VITALS: BP 142/70
[2024-02-20] MEDS: TESSALON PERLES 200 MG PO (04:36)
[2024-02-20 05:44] LABS: Blood Urea Nitrogen 34 mg/dl (9-20); Calcium 9.1 mg/dl (8.4-10.2); Carbon Dioxide 29 mmol/L (22-30); Chloride 103 mmol/L (98-107); Estimated Creatinine Clearance 74 ml/min; Glucose 96 mg/dl (70-99); Potassium 3.6 mmol/L (3.5-5.1); Sodium 140 mmol/L (135-145); eGFR > 60.00
[2024-02-20 08:00] LABS: Magnesium 2.1 mg/dl (1.6-2.3)
[2024-02-20 08:21] VITALS: BP 158/78
[2024-02-20 08:24] VITALS: BMI 41.6
--- NOTE | 2024-02-20 08:24 | W.PN.CARDCBS ---
Today's Communication / Plan
-
Cont IV lasix 40 mg BID. Weight plateaued. Will give additional lasix 40 mg IV this AM Feb 19. He was taking lasix 20 mg every other day as an outpatient
EF preserved, continue Coreg and Valsartan.
Given , now with HF, we discussed outpt TAVR eval.
He just had cv and will have to wait 4 weeks prior to cath as part of work up for .
Remains sinus after cv Feb 16 2024 and continues with Xarelto.
He had been on amiodarone in the past but this was stopped Mar 2022 due to dizziness and near syncope.
Cont med tx of nonMI trop
Discussed likely d/c next 24 hrs.
has been updated last 24 hrs
Discussed with primary service
Impression / Plan
-
.
PCP: Dr. Perez
Cardiology: Dr. Dumont
Impression:
Admitted with acute HFpEF 02/17/24
s/p recent CV for paroxysmal Afib 02/16/24
Paroxysmal Afib on chronic Xarelto OAC
Moderate to severe peak/mean 58/34 mmHg and RINKU 0.8 cm sq by echo 01/01/24
DM 2
HTN
Hyperlipidemia
Chronic Plavix for h/o TIA 2013
Cath 12/28/20: Chronic total occlusion of the right coronary artery with bridging right to right collaterals and left to right collaterals noted to fill the distal vessel and moderate coronary disease in the mid circumflex with the iFR measuring
just above the ischemic threshold
Echo 08/06/20: EF 70-75%, mod conc LVH, moderate peak/mean 43/27 mmHg and RINKU 0.9 cm sq, trace aortic regurgitation. Wall thickness 1.5 cm.
Echo 12/24/2023: EF 57%, mild concentric LVH, mild MR, moderate to severe peak/mean 58/34 mmHg and RINKU 0.8 cm SQ, mild aortic regurgitation
Plan:
Cont IV lasix 40 mg BID. Weight plateaued. Will give additional lasix 40 mg IV this AM Feb 19. He was taking lasix 20 mg every other day as an outpatient
pBNP 2260, HF on CXR at admit.
EF preserved, continue Coreg and Valsartan.
Given , now with HF, we discussed outpt TAVR eval.
He just had cv and will have to wait 4 weeks prior to cath as part of work up for .
Remains sinus after cv Feb 16 2024 and continues with Xarelto.
He had been on amiodarone in the past but this was stopped Mar 2022 due to dizziness and near syncope.
Cont med tx of nonMI trop
Cont supportive care of bronchitis. IV rocephin as per hospitalist.
Discussed likely d/c next 24 hrs.
has been updated last 24 hrs
Discussed with primary service
HPI: -Patient came to ER 02/17/2024 with increased SOB and is now being admitted with acute HF and cardiology has been consulted. Patient was seen in cardiology office on 02/07/2024 with complaints of ongoing atrial fibrillation. His heart rate
was controlled with his usual dose of Coreg and he had not missed any doses of Xarelto so the plan was made to attempt a CV on 02/16/2024. Patient has known paroxysmal A-fib. He had CV 02/16/2024 and was successfully CV to sinus rhythm. Patient
came to ER now with increased SOB and orthopnea is being minimal with acute HF. In retrospect he feels like for the last week or so he had SOB and increased LE edema and things got much worse overnight. He denies any chest pain or palpitations.
He says he has been compliant with his usual dose of Lasix 20 mg every other day. His EF was preserved to 57% by last echo 12/24/2023, but he does have moderate to severe .
Progress Note - Rental Clerk
Subjective
Date of Service: February 20, 2024
Pt seen and examined. Still with cough. No chest pain or shortness of breath.
Objective
Labs:
12/16/24 04:22
02/20/24 04:26
Labs
Hgb 11.6 g/dL (13.0-18.0) L 02/19/24 04:22
Hct 35.9 % (39.0-52.0) L 02/19/24 04:22
Plt Count 173 10^3/uL (130-400) 02/19/24 04:22
Sodium 140 mmol/L (135-145) 02/20/24 04:26
Potassium 3.6 mmol/L (3.5-5.1) 02/20/24 04:26
BUN 34 mg/dl (9-20) H 02/20/24 04:26
Creatinine 1.1 mg/dL (0.7-1.3) 02/20/24 04:26
Glucose 96 mg/dl (70-99) 02/20/24 04:26
Troponins
02/17/24 02/17/24 02/17/24
08:22 15:39 21:08
Troponin I 0.067 H* 0.157 H* D 0.202 H* D
02/18/24
03:14
Troponin I 0.198 H*
Vital Signs and I&O:
Vital Signs
Temp Pulse Resp BP Pulse Ox
97.5 F 61 18 142/70 92
02/20/24 08:19 02/20/24 06:15 02/20/24 08:19 02/20/24 04:25 02/20/24 08:19
Vital Signs
Temp Pulse Resp BP Pulse Ox
97.5 F 61 18 142/70 92
02/20/24 08:19 02/20/24 06:15 02/20/24 08:19 02/20/24 04:25 02/20/24 08:19
Intake & Output
02/18/24 02/19/24 02/20/24 02/21/24
06:59 06:59 06:59 06:59
Intake Total 300 / 300 730 / 730 1200 / 1200
Output Total 2910 / 2910 750 / 750 875 / 875
Balance -2610 / -2610 -20 / -20 325 / 325
Physical Exam
Physical Exam
General: No acute distress, AAOX3
Neck: Negative JVD
Heart: Regular, Negative S3 positive S1/S2, Negative S4, NICKY grade II/
Lungs: CTA b/l, negative wheezes/rales/rhonchi
Abd: Positive BS, NT/ND, neg rebound/rigidity/guarding
Ext: Negative cyanosis/clubbing/edema
Neuro: nonfocal
--- NOTE | 2024-02-20 08:52 | W.PN.HOSP.TC ---
Today's Communication/Plan
-
Additional dose of IV Lasix today, also continue IV Lasix BID
Discussed with cardiology
Anticipate discharge tomorrow
Assessment / Plan
Assessment / Plan
Physical Exam
General: Not in acute distress, obese
HEENT: Normocephalic, Anicteric and Moist mucous membranes
Respiratory: Clear to Auscultation Bilaterally.
Cardiac: S1/S2. RRR.
GI: Soft, Non Tender and Non Distended. Positive bowel sounds.
Musculoskeletal: No cyanosis.
Skin: Warm and Dry
Neuro: AAO x 3, he followed commands
Psych: Calm
Assessment/Plan
#Acute hypoxic respiratory insufficiency -due to acute pulmonary edema, acute HFpEF exacerbation
- Continue with IV Lasix 40 mg BID, additional 20 mg IV Lasix given yesterday, and an additional 40 mg IV Lasix today (in addition to the IV BID
Lasix)
- Continue Coreg and Valsartan
- Daily weights
- Echocardiogram with preserved ejection fraction
#Aortic Stenosis
- TAVR evaluation consideration
- Patient just had cardioversion and will have to wait 4 weeks prior to cath as part of work up for .
#Hypokalemia - RESOLVED
- Replaced, repeat BMP is okay
#Acute bronchitis
-COVID and influenza negative. Treat supportively. Acapella, Mucinex.
Still cough with congestion
-Stopped antibiotics
CT Chest with small to trace bilateral pleural effusions, and basilar posterior predominant groundglass opacities which are favored to show mild pulmonary edema and atelectasis, as per radiologist
Mild emphysematous change with circumferential bronchial wall thickening -- likely mild bronchitis
#Troponin elevation - suspect acute nonischemic myocardial injury due to heart failure exacerbation. Denies chest pain. EKG shows sinus rhythm with first-degree AV block.
#Essential hypertension
Resume home medications.
#Hyperlipidemia
#Paroxysmal atrial fibrillation
#History of Amiodarone-Related Dizziness and Syncope
-underwent successful cardioversion 02/15 to sinus rhythm. Continue Xarelto.
-Continue Coreg
# He denies diabetes mellitus history
# BPH, resume home meds
#Morbid obesity due to excess calories
DVT Prophylaxis: Xarelto
Code Status: Full code
Anticipated Discharge: Within 24 hours
Subjective/Interval History
-
Date of Service: February 20, 2024
Patient was seen and examined. He denied any chest pain or shortness of breath.
Objective Data
-
Labs:
Laboratory Results
02/20/24
04:26
Sodium 140
Potassium 3.6
Chloride 103
Carbon Dioxide 29
BUN 34 H
Creatinine 1.1
Glucose 96
Calcium 9.1
Vital Signs:
Vital Signs
Temp Pulse Resp BP Pulse Ox
97.5 F 61 18 142/70 92
02/20/24 08:19 02/20/24 06:15 02/20/24 08:19 02/20/24 04:25 02/20/24 08:19
I&O
02/19/24 02/20/24 02/21/24
06:59 06:59 06:59
Intake Total 730 / 730 1200 / 1200
Output Total 750 / 750 875 / 875
Balance -20 / -20 325 / 325
[2024-02-20] MEDS: KCL 40 MEQ PO (09:07)
[2024-02-20] MEDS: COREG 3.125 MG PO ×2 (09:08→19:35)
[2024-02-20] MEDS: PRED FORTE 1% EYE DROPS 1 DROP RIGHT EYE ×4 (09:08→22:01)
[2024-02-20] MEDS: LOW STRENGTH ASPIRIN 81 MG PO (09:08)
[2024-02-20] MEDS: MUCINEX 600 MG PO ×2 (09:08→19:35)
[2024-02-20] MEDS: HYTRIN 5 MG PO (09:08)
[2024-02-20] MEDS: PROSCAR 5 MG PO (09:08)
[2024-02-20] MEDS: LASIX 40 MG IV ×3 (09:09→17:08)
[2024-02-20] MEDS: DESENEX/MITRAZOL/ZEASORB 1 APPLIC TOPICAL ×2 (09:09→19:35)
[2024-02-20] MEDS: OCEAN, SALINE MIST 50 SPRAYS NASAL (09:09)
--- NOTE | 2024-02-20 11:04 | W.HF.CON ---
Heart Failure
- LV Function
Left ventricular function study result: LV Ejection fraction >/= 50% (ECHO 01/01/24)
Ejection Fraction Percentage: 57
- ARNI
Patient already on ARNI: No
Heart Failure ARNI Not Indicated: LV Ejection Fraction >/= 40%
- ACEI/ARB
Patient already on ACEI/ARB: No
Heart Failure ACEI/ARB Not Indicated: LV Ejection Fraction > 40%
- Beta Paige
Patient already on Evidence Based Beta Paige: Yes
- Mineralocorticord Receptor Antagonist
Patient already on MRA: No
Heart Failure MRA Not Indicated: LV Ejection Fraction > 40%
- SGLT-2 Inhibitor
Patient already on SGLT-2 Inhibitor: No
Heart Failure SGLT-2 Inhibitor Not Indicated: LV Ejection Fraction >40%
- Afib Anticoagulation
Patient already on Anticoagulation for Afib: Yes
- NYHA CHF Classification
NYHA CHF Classification Level: Class III - Symptoms w/ min exertion, interferes w/ nml daily activity
- ACC/AHA Stage
ACC/AHA Stage: Stage C: Symptomatic Heart Failure
[2024-02-20 11:21] VITALS: BP 97/59
--- NOTE | 2024-02-20 11:30 | PN.CDI ---
CDI
- -
CDI:
Physician Documentation Request
Admit Date: 02/17/24 10:29
Dear Doctor Ken,
Clinical Indicators:
Patient admitted with acute HFpEF.
02/18 KCl 40 meq po x 1 dose.
Potassium level:
02/19/24
04:22
Potassium 3.4 L
Based on the above, could you clarify in the progress notes, the appropriate diagnosis, if significant, that supports the above abnormalities and additional evaluation, monitoring and/or treatment rendered:
Hypokalemia
Abnormal lab value, clinically insignificant
Other
Use of terms such as suspected, likely, concern for, or probable (associated with a specific diagnosis that is being evaluated, monitored, or treated as if it exists) are acceptable and can be coded in the inpatient setting, when documented at the
time of discharge.
Thank you,
Lucina Urbano RN
CDI Specialist BSN
available via tiger text
Please use your independent medical judgment in providing your response.
[2024-02-20 15:35] VITALS: BP 139/88
[2024-02-20] MEDS: XARELTO 20 MG PO (17:07)
[2024-02-20 19:12] VITALS: BP 140/63
--- NOTE | 2024-02-20 21:34 | PTCARENOTE ---
Received pt at change of shift. SR with a first degree heart block on the monitor, HR in the 70s. VSS on room air. No complaints from pt at this time, call kiser within reach.
[2024-02-20 22:04] VITALS: BP 138/56
[2024-02-21 04:34] VITALS: BP 178/64
[2024-02-21 04:47] VITALS: BMI 41.6
[2024-02-21 05:40] LABS: Blood Urea Nitrogen 31 mg/dl (9-20); Calcium 9.3 mg/dl (8.4-10.2); Carbon Dioxide 31 mmol/L (22-30); Chloride 102 mmol/L (98-107); Estimated Creatinine Clearance 82 ml/min; Glucose 101 mg/dl (70-99); Potassium 3.6 mmol/L (3.5-5.1); Sodium 138 mmol/L (135-145); eGFR > 60.00
[2024-02-21 06:01] VITALS: BP 176/66
[2024-02-21] MEDS: COREG 3.125 MG PO (06:04)
--- NOTE | 2024-02-21 06:07 | PTCARENOTE ---
Patients blood pressure 178/64, asymptomatic. BASIC COMBATANT SWIMMER Beau Mckeon made aware, rechecked BP at 0600 per BASIC COMBATANT SWIMMER. BP 176/66, HR 67. 0800 Coreg given early as per BASIC COMBATANT SWIMMER, see MAY.
[2024-02-21 07:56] VITALS: BP 180/59
[2024-02-21] MEDS: MUCINEX 600 MG PO (07:58)
[2024-02-21] MEDS: PROSCAR 5 MG PO (07:58)
[2024-02-21] MEDS: PRED FORTE 1% EYE DROPS 1 DROP RIGHT EYE ×2 (07:58→14:14)
[2024-02-21] MEDS: LOW STRENGTH ASPIRIN 81 MG PO (07:58)
[2024-02-21] MEDS: HYTRIN 5 MG PO (07:58)
[2024-02-21] MEDS: DESENEX/MITRAZOL/ZEASORB 1 APPLIC TOPICAL (07:58)
[2024-02-21] MEDS: LASIX 40 MG IV (07:58)
[2024-02-21 09:37] VITALS: BP 141/68
[2024-02-21 11:11] VITALS: BP 153/70
--- NOTE | 2024-02-21 12:26 | CM ---
Reviewed chart. Met with Mr. Nelson to review discharge plans. He states he is feeling well and maybe able to go home soon. He states prior to admission he resides with his spouse in a two story jon with two steps to enter. He states he has a
full flight of steps to get to bedroom/full bathroom. He states he has a powder room. He states he does not have any DME in the home. He states he has a prescription plan. We reviewed [facility] and at this time he is declining [facility].
Medical work-up in progress. The discharge plan is to return home with his spouse when medically stable.
--- NOTE | 2024-02-21 13:27 | W.PN.HOSP.TC ---
Addendum entered and electronically signed by René Rogers MD 02/21/24 16:25:
I confirmed today with patient's telephone plant power operator Dr. Dumont that it is okay to send patient home on reduced-dose Coreg of 3.125 mg BID. Patient has close cardiology follow-up outpatient during which his Coreg can be increased if appropriate.
Original Note:
Today's Communication/Plan
-
Discharge today
Assessment / Plan
Assessment / Plan
Physical Exam
General: Not in acute distress, obese
HEENT: Normocephalic, Anicteric and Moist mucous membranes
Respiratory: Clear to Auscultation Bilaterally.
Cardiac: S1/S2. RRR.
GI: Soft, Non Tender and Non Distended. Positive bowel sounds.
Musculoskeletal: No cyanosis.
Skin: Warm and Dry
Neuro: AAO x 3, he followed commands
Psych: Calm
Assessment/Plan
#Acute hypoxic respiratory insufficiency -due to acute pulmonary edema, acute HFpEF exacerbation
- Received IV Lasix inpatient.
- On discharge PO Lasix 20 mg daily.
- Continue Coreg and Valsartan
- Daily weights
- Echocardiogram with preserved ejection fraction
#Aortic Stenosis
- TAVR evaluation consideration
- Patient just had cardioversion and will have to wait 4 weeks prior to cath as part of work up for .
#Hypokalemia - RESOLVED
- Replaced, repeat BMP is okay
#Acute bronchitis
-COVID and influenza negative. Treat supportively. Acapella, Mucinex.
Still cough with congestion
-Stopped antibiotics
CT Chest with small to trace bilateral pleural effusions, and basilar posterior predominant groundglass opacities which are favored to show mild pulmonary edema and atelectasis, as per radiologist
Mild emphysematous change with circumferential bronchial wall thickening -- likely mild bronchitis
#Troponin elevation - suspect acute nonischemic myocardial injury due to heart failure exacerbation. Denies chest pain. EKG shows sinus rhythm with first-degree AV block.
#Essential hypertension
Resume home medications.
#Hyperlipidemia
#Paroxysmal atrial fibrillation
#History of Amiodarone-Related Dizziness and Syncope
-underwent successful cardioversion 02/15 to sinus rhythm. Continue Xarelto.
-Continue Coreg
# He denies diabetes mellitus history
# BPH, resume home meds
#Morbid obesity due to excess calories
DVT Prophylaxis: Xarelto
Code Status: Full code
More than 30 minutes spent in discharge including
Final examination of the patient
Summarizing hospital stay
Instructions for continuing care to all relevant caregivers
Preparation of discharge records, prescriptions, and referral forms
Total time spent (in minutes): 36
Anticipated Discharge: Today
Subjective/Interval History
-
Date of Service: February 21, 2024
Patient was seen and examined. He denied any chest pain or shortness of breath.
Objective Data
-
Labs:
Laboratory Results
02/21/24
04:41
Sodium 138
Potassium 3.6
Chloride 102
Carbon Dioxide 31 H
BUN 31 H
Creatinine 1.0
Glucose 101 H
Calcium 9.3
Vital Signs:
Vital Signs
Temp Pulse Resp BP Pulse Ox
97.7 F 70 18 153/70 94
02/21/24 11:09 02/21/24 12:00 02/21/24 11:09 02/21/24 11:11 02/21/24 11:09
I&O
02/20/24 02/21/24 02/22/24
06:59 06:59 06:59
Intake Total 1200 / 1200 480 / 480
Output Total 875 / 875 1475 / 1475 1325 / 1325
Balance 325 / 325 -995 / -995 -1325 / -1325
--- NOTE | 2024-02-21 13:30 | W.PN.CARDCBS ---
Addendum entered and electronically signed by Johan Boo MD 02/21/24 13:49:
I saw and examined the patient.
The MEDICAL SECRETARY TEACHER or PA's note was reviewed and I agree with the note.
Comment: General: Well developed, well nourished in NAD.
Neck: Supple, no JVD, HJR, carotids +2 B/L, no bruits bilaterally.
Heart: Non displaced PMI, RRR, 2/6 basal systolic murmur, No S3, S4, no rubs.
Lungs: Scattered rhonchi
Extremities: No clubbing, cyanosis or edema bilaterally.
Neuro: Grossly nonfocal, awake, alert and oriented x3.
His weight has not changed significantly during admission. Stable cardiology status for discharge on Lasix 20 mg daily. Agree with resuming Diovan. Will arrange follow-up visit.
Original Note:
Today's Communication / Plan
-
Lasix 20 mg PO daily at d/c
Will arrange cardiology f/u within 1 week because patient declining [facility]
Impression / Plan
-
PCP: Dr. Perez
Cardiology: Dr. Dumont
Impression:
Admitted with acute HFpEF 02/17/24
s/p recent CV for paroxysmal Afib 02/16/24
Paroxysmal Afib on chronic Xarelto OAC
Moderate to severe peak/mean 58/34 mmHg and RINKU 0.8 cm sq by echo 01/01/24
DM 2
HTN
Hyperlipidemia
Chronic Plavix for h/o TIA 2013
CAD
MANAGER PROPERTY RCA with collaterals, moderate CAD mid Circ and iFR measuring just above the ischemic threshold 12/28/20
Echo 08/06/20: EF 70-75%, mod conc LVH, moderate peak/mean 43/27 mmHg and RINKU 0.9 cm sq, trace aortic regurgitation. Wall thickness 1.5 cm.
Echo 12/24/2023: EF 57%, mild concentric LVH, mild MR, moderate to severe peak/mean 58/34 mmHg and RINKU 0.8 cm SQ, mild aortic regurgitation
Plan:
-Weight not down much this admission, but when compared to weight in 2020 weight is stable and overall patient is symptomatically improved. Recheck pro-BNP ordered and result pending.
-Patient has been diuresed with Lasix 40 mg IV BID and Cre stable. Patient was taking Lasix 20 mg every other day prior to admission and recommend Lasix 20 mg daily upon d/c
-EF preserved
-Patient with known moderate to severe and his name was referred to the TAVR program coordinators for evaluation.
-Eventual cath following 4 weeks of OAC after CV last week
-Patient with known paroxysmal Afib and remains in SR following CV 02/16/24. Amiodarone was stopped due to dizziness and near syncope 03/2022.
-Cont Xarelto 20 mg daily
-Agree with d/c to home 02/21/24
HPI: -Patient came to ER 02/17/2024 with increased SOB and is now being admitted with acute HF and cardiology has been consulted. Patient was seen in cardiology office on 02/07/2024 with complaints of ongoing atrial fibrillation. His heart rate
was controlled with his usual dose of Coreg and he had not missed any doses of Xarelto so the plan was made to attempt a CV on 02/16/2024. Patient has known paroxysmal A-fib. He had CV 02/16/2024 and was successfully CV to sinus rhythm. Patient
came to ER now with increased SOB and orthopnea is being minimal with acute HF. In retrospect he feels like for the last week or so he had SOB and increased LE edema and things got much worse overnight. He denies any chest pain or palpitations.
He says he has been compliant with his usual dose of Lasix 20 mg every other day. His EF was preserved to 57% by last echo 12/24/2023, but he does have moderate to severe .
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
Subjective
Date of Service: February 21, 2024
Feels well, wants to go home
Objective
Labs:
02/19/24 04:22
02/21/24 04:41
Labs
Hgb 11.6 g/dL (13.0-18.0) L 02/19/24 04:22
Hct 35.9 % (39.0-52.0) L 02/19/24 04:22
Plt Count 173 10^3/uL (130-400) 02/19/24 04:22
Sodium 138 mmol/L (135-145) 02/21/24 04:41
Potassium 3.6 mmol/L (3.5-5.1) 02/21/24 04:41
BUN 31 mg/dl (9-20) H 02/21/24 04:41
Creatinine 1.0 mg/dL (0.7-1.3) 02/21/24 04:41
Glucose 101 mg/dl (70-99) H 02/21/24 04:41
Vital Signs and I&O:
Vital Signs
Temp Pulse Resp BP Pulse Ox
97.7 F 70 18 153/70 94
02/21/24 11:09 02/21/24 12:00 02/21/24 11:09 02/21/24 11:11 02/21/24 11:09
Vital Signs
Temp Pulse Resp BP Pulse Ox
97.7 F 70 18 153/70 94
02/21/24 11:09 02/21/24 12:00 02/21/24 11:09 02/21/24 11:11 02/21/24 11:09
Intake & Output
02/19/24 02/20/24 02/21/24 02/22/24
06:59 06:59 06:59 06:59
Intake Total 730 / 730 1200 / 1200 480 / 480
Output Total 750 / 750 875 / 875 1475 / 1475 1325 / 1325
Balance -20 / -20 325 / 325 -995 / -995 -1325 / -1325
Physical Exam
Physical Exam
GEN: AAOx3
HEENT: mmm
LUNGS: RA, no audible wheeze
CV: SR on tele.
ABD: ND
EXT: Trace B/L LE edema
NEURO: Gross non-focal
SKIN: No rash
[2024-02-21 14:37] LABS: NT-proBNP 665 pg/ml
--- NOTE | 2024-02-21 15:49 | PTCARENOTE ---
Pt is AOx3, no complaints of pain or discomfort. OOB to chair for most of shift. Standby assist OOB. VSS, SR on tele monitor. Call kiser within reach.
== END 2024-02-21 17:09 | disposition home or self-care (01) | DRG 291 ==
LOC: IVU 10:29
PROVIDERS: Internal Medicine; Physician Assistant; ADMITTING PHYSICIAN Hospitalist; ATTENDING PHYSICIAN Hospitalist; CONSULT PHYSICIAN Internal Medicine Cardiovascular Disease; EMERGENCY PHYSICIAN Emergency Medicine; FAMILY PHYSICIAN Family Medicine
DX: I11.0 Hypertensive heart disease with heart failure (principal); I50.33 Acute on chronic diastolic (congestive) heart failure; Z68.41 Body mass index [BMI] 40.0-44.9, adult; I48.0 Paroxysmal atrial fibrillation; I35.0 Nonrheumatic aortic (valve) stenosis; E11.9 Type 2 diabetes mellitus without complications; E78.00 Pure hypercholesterolemia, unspecified; E66.01 Morbid (severe) obesity due to excess calories; I5A Non-ischemic myocardial injury (non-traumatic); R09.02 Hypoxemia; R06.89 Other abnormalities of breathing; J20.9 Acute bronchitis, unspecified; N40.0 Benign prostatic hyperplasia without lower urinary tract symptoms; E87.6 Hypokalemia; Z87.891 Personal history of nicotine dependence; Z86.73 Personal history of transient ischemic attack (TIA), and cerebral infarction without residual deficits; Z79.899 Other long term (current) drug therapy; Z79.82 Long term (current) use of aspirin; Z79.02 Long term (current) use of antithrombotics/antiplatelets; Z79.01 Long term (current) use of anticoagulants; Z11.52 Encounter for screening for COVID-19
CPT/HCPCS: 71046; 71250; 80048; 80053; 83735; 83880; 84484; 85025; 85027; 87502; 87798; 87811; 93005; 94640; 96374; 99285

== ENCOUNTER 2024-03-26 06:24 | Day surgery (SDC) | payer OTHER, SELFPAY ==
[2024-03-26] VITALS (13 sets, daily range): BP systolic 115–170; BP diastolic 63–143; BMI 42.3
[2024-03-26] MEDS: LOW STRENGTH ASPIRIN 81 MG PO (07:28)
[2024-03-26] MEDS: NSS 379 ML IV (07:33)
--- NOTE | 2024-03-26 09:52 | ITS.CL.CATH ---
Loan Officer - Catheterization
Cardiac Catheterization
Procedure Report:
RIGHT AND LEFT HEART STUDY
Date of Procedure: March 26, 2024
Referring: Dr. Jaspal Dumont
PROCEDURES:
1. Right heart catheterization
2. Left heart catheterization with coronary and single-plane left ventriculography
INDICATION: This is a 78-year-old gentleman with a past medical history notable for moderate to severe aortic stenosis, coronary artery disease with known chronic total occlusion of the proximal right coronary artery, diabetes, hypertension,
hyperlipidemia, paroxysmal atrial fibrillation on chronic oral anticoagulation and history of TIA. He was admitted to [facility] on 02/17/2024 with complaints of increased shortness of breath with acute on chronic congestive heart failure.
His troponin peaked at 0.202 ng/mL. He denied any chest pain and the troponin elevation was felt to be secondary to his chronically occluded right coronary artery. During that hospitalization he underwent cardioversion of his atrial fibrillation
to sinus rhythm with a single 200 J synchronized biphasic shock. His symptoms improved with diuresis although he never experienced significant weight loss. His last echocardiogram from January 01, 2024 was notable for an estimated ejection
fraction of 57%. There was mild mitral regurgitation. The aortic valve was found to be calcified and restricted with peak and mean gradients of 58 and 34 mmHg respectively. His estimated aortic valve area 0.8 cm�. He continues to experience
exertional dyspnea is when climbing stairs and is now referred for right and left heart catheterization
ACCESS: Right radial artery using ultrasound guidance and micropuncture technique with insertion of a 6 Norwegian sheath. The right brachial vein was localized with ultrasound guidance and micropuncture technique. A 5 Norwegian sheath was inserted. Of
note the patient experienced severe pain and spasm with catheter manipulation and the diagnostic catheters were downsized to 5 Norwegian rather than 6 Norwegian with significant improvement in symptoms. A Raul dual-lumen pigtail catheter (6 Norwegian)
was utilized to obtain hemodynamics but resulted in severe discomfort with catheter manipulation
HEMODYNAMICS : mmHg
RA (m) : 15
RV (s/d) : 33/10, 14
PA (s/d, m) : 36/19, 26
PCWP (m) : 20
AO (s/d, m) : 145/66, 94
LV (s/d) : 172/12
LVEDP : 21
Estimated Nidia Cardiac Output: 5.1 L / min and Cardiac Index: 2.2 L/ min / m-2
Systemic vascular resistance: 19.0 Wood units or 1522 [id number](-5)
Pulmonary vascular resistance: 1.2 Wood units or 94.1 [id number]-vay-fn(-5)
AORTIC VALVE
Mean gradient: 31 mmHg
RINKU: 1.09 cm2
CORONARY FINDINGS :
Dominance: Right
LEFT MAIN: Short and unobstructed
LEFT ANTERIOR DESCENDING: The LAD arises normally from the left main and runs in the anterior interventricular groove
CIRCUMFLEX: The circumflex is a medium caliber nondominant vessel with moderate diffuse coronary disease in the mid circumflex spanning the origin of OM1 to OM2 where a 65% stenosis is noted. OM 2 is large. OM 3 is small.
RIGHT CORONARY ARTERY: The right coronary artery is a dominant vessel that is chronically occluded proximally with the distal vessel filling via right to right and faint dfea-et-xpeoi collaterals
VENTRICULOGRAPHY: Left ventriculography is performed in FAUSTIN projection. The digital single-plane left ventricular ejection fraction is visually estimated at 55% with mild anterolateral hypokinesis
RADIATION SUMMARY: Fluoro Time (min): 11.9, Dose (mGy): 644.7, DAP (Gy.cm2) : 52.1
CONCLUSIONS
1. Elevated right and left ventricular filling pressures with LVEDP and PCWP measuring around 20 mmHg
2. Moderate to severe aortic stenosis with mean aortic valve gradient by simultaneous AO/LV pressure around 31 mmHg
3. Coronary artery disease with chronically occluded RCA filling via right to right and [id number] collaterals and moderate coronary disease involving the mid circumflex
RECOMMENDATIONS
1. Will increase furosemide to 40 mg daily and check renal profile in 1 to 2 weeks
2. Patient should monitor home blood pressures. Probably needs aggressive titration of antihypertensives for goal blood pressure less than 120/80. He currently states that many of his home readings are 130-140 mmHg range. We will wait to's see
if adjustment of diuretic affects blood pressure. He had been on amlodipine 2.[address] Dumont discontinued the amlodipine at some point in the past. Neither the patient nor his remember why Dr. Dumont discontinue this medication but
may be reasonable to restart in the future
3. We will need to review echo and catheterization report to determine if patient is ready for TAVR. Otherwise we will schedule repeat imaging and reassess. He was admitted for heart failure in February which is likely multifactorial.
Echocardiographic imaging may be important in determining the next steps
Copy to: Dr. Jaspal Dumont
== END 2024-03-26 13:20 | disposition home or self-care (01) ==
LOC: CATH 06:24
PROVIDERS: ATTENDING PHYSICIAN Internal Medicine Interventional Cardiology; FAMILY PHYSICIAN Family Medicine; OTHER PHYSICIAN Nuclear Medicine Nuclear Cardiology
DX: I35.0 Nonrheumatic aortic (valve) stenosis (principal); I25.10 Atherosclerotic heart disease of native coronary artery without angina pectoris; I25.82 Chronic total occlusion of coronary artery; I48.0 Paroxysmal atrial fibrillation; I11.0 Hypertensive heart disease with heart failure; I50.9 Heart failure, unspecified; E78.5 Hyperlipidemia, unspecified; E11.9 Type 2 diabetes mellitus without complications; Z86.73 Personal history of transient ischemic attack (TIA), and cerebral infarction without residual deficits; Z87.891 Personal history of nicotine dependence; Z79.01 Long term (current) use of anticoagulants; Z79.82 Long term (current) use of aspirin
CPT/HCPCS: 93460; C1769; C1894; Q9967

== ENCOUNTER → 2024-06-06 12:46 | Outpatient (REF) | payer OTHER, SELFPAY | LOC: HWRCS 12:46 | PROVIDERS: ATTENDING PHYSICIAN Nuclear Medicine Nuclear Cardiology; FAMILY PHYSICIAN Family Medicine | DX: I48.0 Paroxysmal atrial fibrillation (principal) | CPT/HCPCS: 93306 ==

== ENCOUNTER → 2024-10-15 09:04 | Outpatient (REF) | payer OTHER, SELFPAY | LOC: RAD 09:04 | PROVIDERS: ATTENDING PHYSICIAN Nurse Practitioner Adult Health; FAMILY PHYSICIAN Family Medicine; OTHER PHYSICIAN Nuclear Medicine Nuclear Cardiology | DX: I35.0 Nonrheumatic aortic (valve) stenosis (principal) | CPT/HCPCS: 74174; 75572; Q9967 ==

== ENCOUNTER → 2024-11-08 11:48 | Outpatient (REF) | payer OTHER, SELFPAY | LOC: HWRAD 11:48 | PROVIDERS: ATTENDING PHYSICIAN Family Medicine | DX: N28.9 Disorder of kidney and ureter, unspecified (principal) | CPT/HCPCS: 76775 ==

== ENCOUNTER 2024-11-21 04:56 | Inpatient (IN) | payer OTHER, SELFPAY ==
[2024-11-15 08:46] VITALS: BMI 40.2
[2024-11-15 09:36] LABS: Hematocrit 37.2 % (39.0-52.0); Hemoglobin 12.2 g/dL (13.0-18.0); Mean Corp Hgb Conc. 32.8 g/dL (33.0-37.0); Mean Corpuscular Volume 80.0 fL (80.0-94.0); Nucleated Red Blood Cells % 0 % (-); Platelet Count 214 10^3/uL (130-400); Red Cell Dist. Width 14.6 % (11.5-14.5)
[2024-11-15 09:47] LABS: INR 2.15; PT 24.1 Sec (11.4-14.6)
[2024-11-15 09:52] LABS: ALT (SGPT) 26 U/L (0-50); AST (SGOT) 28 U/L (17-59); Albumin 3.6 g/dl (3.5-5.0); Alkaline Phosphatase 103 U/L (38-126); Blood Urea Nitrogen 20 mg/dl (9-20); Calcium 9.1 mg/dl (8.4-10.2); Carbon Dioxide 28 mmol/L (22-30); Chloride 104 mmol/L (98-107); Estimated Creatinine Clearance 74 ml/min; Glucose 158 mg/dl (70-99); Potassium 4.1 mmol/L (3.5-5.1); Sodium 138 mmol/L (135-145); Total Protein 6.4 g/dl (6.3-8.2); eGFR > 60.00
[2024-11-15 10:35] LABS: Urine Character Clear (Clear)
[2024-11-15 10:37] LABS: Glycohemoglobin (HgbA1c) 6.0 % (4.0-5.6)
[2024-11-15 10:47] LABS: Urine Red Blood Cell 0-2 /HPF (0-2)
--- NOTE | 2024-11-15 10:54 | CM ---
Chart reviewed. Met with the patient in PAT. Patient is independent of ADLS, lives with his in a 2 STH, 2 KATTY, 0 DME. Reviewed preoperative and postoperative instructions and restrictions, along with showering guidelines. Gave patient 2
soaps. Patient is agreeable to a home visit by CT Transitional RN. Plan is for the patient to return home with CT Transitional RN. CM to follow
[2024-11-21] VITALS (17 sets, daily range): BP systolic 121–168; BP diastolic 51–104; BMI 40.6
--- NOTE | 2024-11-21 05:57 | PTCARENOTE ---
Received direct admit into room 2257 w/ spouse and son at bedside. Ambulated self, denies any pain. Pt FLETCHER, and sating 98% RA. Lungs decreased in right base. Pt AAOx3. Neuro WNL , pupils equal/round and reactive. bilateral lower extremity edema +2.
and DP pulses palpable and marked. Pt clipped and CHG wipes performed. Pt reports taking 81mg Aspirin at 03:36. Patient states he hasn't had anything to eat since 17:00 yesterday. Admissions q's and med rec completed. Patient oriented to room,
call kiser in reach.
--- NOTE | 2024-11-21 06:08 | W.CVOR.SURPR ---
CVOR Surgeon Immed Pre Op
-
I have examined this patient prior to performance of the scheduled procedure.
The patient's condition is unchanged from the time of the dictated/written History and
Physical and the patient is able to undergo the scheduled procedure.
TF TAVR, Full Rescue
--- NOTE | 2024-11-21 08:20 | CM ---
Addendum entered by Gina Molina 11/21/24 14:10:
Met with Mr. Tavarez to review discharge plans. He states he is feeling well and hoping he can home tomorrow. He states prior to admission he resides with his spouse in a two story home with two steps to enter. He states he has a full
flight of steps to get to bedroom/full bathroom. He states he has a powder room on the first floor. He states prior to admission he was independent with ambulation and adls He states he does not have any DME in the home. He states he has a
prescription plan and uses [facility]. His spouse states she will be home to assist in his care if needed. We reviewed a home visit by the Transitional Care Nurse. He is agreeable to a home visit. Medical work-up in progress. The discharge plan
is to return home with his spouse and a home visit by the Transitional Care Nurse when medically stable.
Original Note:
Reviewed chart. Mr. Nelson is in the operating room today. Prior to admission he resides with his spouse in a two story home with two steps to enter. Prior to admission he was independent with ambulation and adls. He does not have any DME in the
home. Medial work-up in progress. The discharge plan is to return home with his spouse and a home visit by the Transitional Care Nurse when medically stable.
[2024-11-21 08:32] LABS: ACT-LR - POC 318 Seconds (116-155)
--- NOTE | 2024-11-21 08:48 | ITS.CL.TAVR ---
Dip Filler - TAVR Report
TAVR PRocedure
Procedure Report:
TRANSCATHETER AORTIC VALVE REPLACEMENT
Date of Procedure: November 21, 2024
Referring: Dr. Jaspal Dumont
Operators: Dr. Sylvain Araujo, Dr. Jodie Puga, Dr. Basil Lopez
PROCEDURE PERFORMED:
1. Successful placement of 26 mm Carvajal Jamie S3 aortic valve via right common femoral approach.
2. Ultrasound guidance and micropuncture technique was utilized to gain arterial access in the left common femoral artery, ultrasound guidance was utilized to gain access in the left common femoral vein, and ultrasound guidance was utilized to gain
access in the right common femoral artery. Images were stored as part of the permanent record.
PREPROCEDURE NYHA CLASS: 3
DESCRIPTION OF PROCEDURE: The patient was referred for assessment of severe symptomatic aortic stenosis and following a comprehensive evaluation it was felt that transcatheter aortic valve replacement (TAVR) would be the most appropriate treatment.
Informed consent was obtained prior to the procedure. A 'time-out' was called and the procedural plan was verbally confirmed by anesthesia, surgery, perfusion, and laborer powerhouse staff.
Arterial access was obtained in the left common femoral artery using ultrasound guidance and micropuncture technique. A 6 Fr sheath was inserted. Ultrasound guidance was then utilized to gain access into the left common femoral vein and a 6 Fr
sheath was inserted. Angiography of the left common femoral arteriotomy site revealed appropriate positioning for closure at the end of the procedure with a 6 Sami Angio-Seal. Attention was then turned to the right common femoral artery.
Ultrasound guidance was utilized and access was obtained in the right common femoral artery using ultrasound guidance. Images were stored. Angiography through the micropuncture sheath revealed appropriate positioning of the arteriotomy for
preclosure with 2 Perclose devices. A 0.035 inch J-wire was then reinserted through the micropuncture sheath and a 6 Fr sheath was then inserted.
A transvenous pacemaker wire was then advanced from the right common femoral vein to the right ventricular apex where excellent pacing thresholds were obtained.
An angled pigtail catheter was then advanced through the left common femoral sheath and positioned in the proximal ascending thoracic aorta / right coronary cusp. Angiography was performed to define a coplanar angle facilitating positioning and
delivery of the TAVR device. COOK ISLANDER 12 appear to be a reasonable coplanar angle.
Pre-closure of the right femoral arteriotomy was then performed using 2 Perclose devices and was followed by placement of an 8 Fr arterial sheath.
An AL-1 catheter was then advanced to the proximal descending thoracic aorta over 0.035' J-tipped guidewire. An Amplatz Extra-Stiff wire was then advanced through the AL-1 catheter to the proximal descending thoracic aorta. The AL-1 catheter was
removed and the supportive wire was utilized to facilitate delivery of the Carvajal eSheath and dilator. Heparin, 10,500 units, was administered and the ACT was monitored throughout the procedure.
The AL-1 catheter was then readvanced through the Carvajal eSheath. The 0.035' stiff wire was allowed to drift across the aortic arch and the AL1 was positioned just above the aortic valve. The stenotic leaflets were probed with a Soft-tip Straight
wire. The aortic leaflets were crossed and the AL-1 catheter followed the Soft-tip Straight wire to the mid left ventricle. The wire was removed. Left ventricular end-diastolic pressures was measured at 25 mmHg.
An Amplatz Extra-Stiff wire with a generous curved tip was then advanced to the mid left ventricle. The AL-1 catheter was removed and the Amplatz wire was left in place in order to facilitate delivery of the Carvajal delivery system. A 26 mm
Carvajal JAMIE S3 valve was brought to the table and the orientation of the valve on the balloon delivery system was confirmed by all operators. The JAMIE S3 valve was advanced through the eSheath and into the proximal descending thoracic aorta.
The JAMIE valve was centered on the delivery balloon and the entire system was retroflexed as across the aortic arch in an COOK ISLANDER projection. The JAMIE S3 delivery system was then advanced across the stenotic aortic leaflets. The pusher was
retracted. Angiography confirmed appropriate positioning of the valve and rapid pacing was undertaken. The 26 mm JAMIE S3 valve was deployed during rapid pacing. Valve deployment was uneventful. Aortography following valve deployment suggested
no aortic insufficiency while the wire was still across the valve in the left ventricle.
The post valve deployment transthoracic echocardiogram was notable for a mean gradient of 5 mmHg.
The Carvajal valve delivery system was removed. The Carvajal eSheath was removed and the Perclose knots were advanced to the arteriotomy site with excellent hemostasis. Angiography after the Perclose knots were advanced to the arteriotomy site and
demonstrated good distal runoff.
A 6 Sami Angio-Seal was then utilized to obtain hemostasis in the left common femoral artery. The temporary pacemaker and 6 Fr sheath were removed and manual pressure was held over the 6 Sami femoral venous access.
Protamine was administered to reverse the intravenous anticoagulant.
Fluoro Time: 14.4 min, Dose: 564 mGy, DAP : 61.9 gy.cm2
CONCLUSIONS:
1. Severe symptomatic aortic stenosis. Successful deployment of a 26 mm JAMIE S3 valve with a post valve mean gradient of 5 mmHg
2. The right arteriotomy was closed with 2 Perclose devices and successful closure of the left common femoral arteriotomy site with a 6 Fr Angio-Seal
Copy to: Dr. Jaspal Dumont
[2024-11-21 08:51] LABS: ACT-LR - POC 300 Seconds (116-155)
--- NOTE | 2024-11-21 08:51 | W.PN.CT.SURG ---
CT Surgery Operative Note
-
OPERATIVE REPORT
Preoperative Diagnosis: Moderate to severe aortic valve stenosis, symptomatic
Postoperative Diagnosis: Same
Procedure(s) Performed: Right trans femoral TAVR with a 26 mm Carvajal Resilia TAVR valve
Date of Procedure: 11/21/2024
Comorbidities:
1. Severe aortic stenosis, symptomatic
2. Hypertension
3. Moderate coronary artery disease
4. Carotid artery disease
Cardiac Surgeon: Basil Lopez MD, MS and Jodie Puga MD, MPH
Lace Stripper: Sylvain Araujo MD
Anesthesia: Conscious Sedation and Local Analgesia
EBL: 150 cc
Products: none
Implant: 26 mm Carvajal Resilia, SN: [id number]
Indication(s) for Procedures: 79-year-old male with symptomatic moderate to severe aortic stenosis. PG/M/32 mmHg, RINKU 1.3. CT-TAVR protocol revealed acceptable anatomy for TAVR access and implantation.
Start time: 0740 hrs
Deployment time: 0825 hrs
End time: 0839 hrs
Radiation Dose (mGy): 564
DAP (cm2.Gy): 61.9
Fluoroscopy time (minutes): 14.4
Contrast volume (ml): 125
TAVR gradient (mmHg): 5 mmHg
Heparin Dose: 10,500 units
Protamine Dose: 40 mg
Final Valve Positionin/10
LVEPD: 25 mmHG
Findings: Preoperative LVEF was 55�60% and was 55�60% following TAVR without inotropic support. Function was overall normal without regional wall motion abnormalities or dyskinesia. The aortic valve was well seated without detectable PVL and mean
gradient across the new valve was 5 mmHg. Patient remained stable and returned to sinus while on the woodworking shop laborer table. There was successful placement of 26 mm TAVR valve without acute complications.
Access:
1. Device -R HOT BOX CHECKER, perclose x 2
2. Pigtail -L HOT BOX CHECKER + 6Fr angioseal
3. Transvenous Pacer -L HOT BOX CHECKER
Description of Procedure: The patient was taken to the woodworking shop laborer. Their identity and procedure to be performed were verified and they were positioned supine on the woodworking shop laborer table. Induction via conscious sedation. The patient was then prepped and
draped from chin to thigh in a sterile fashion. A preoperative time-out was performed with all members of the team present. Arterial and venous access was performed using fluoroscopy and ultrasound guidance with micropuncture and Seldinger
technique. Two perclose devices were used on the device side followed by access to the aorta with a stiff wire to facilitate E-sheath placement. Heparin was given. A stiff straight wire and AL-1 catheter was used to cross the aortic valve. An LVEDP
was measured. The stiff wire was exchanged for an extra stiff coiled tip wire. The valve was prepped and mounted on to the device carrier. An ACT of >250 was achieved. We verified x 3 that the valve was mounted in the correct orientation with the
skirt of the valve directed toward the tip of the device carrier. We advanced the device into the descending thoracic aorta where the valve was them mounted onto the balloon under fluoroscopy. The device was flexed and advanced over the arch into
the root and positioned across the aortic valve. Contrast fluoroscopy was used to visualize the prosthesis across the valve and to guide positioning. A pigtail catheter in the RCC as used as a guide. We aimed to have the bottom of the device marker
at the annular hinge point. The device sheath was pulled back. We performed a quick pre-deployment time out. The pacer was turned on and had capture. Blood pressure fell accordingly, angiography was done to verify the intended final placement and
the valve was deployed with 5 seconds of rapid pacing to nominal volume. The balloon was deflated and the pacer was turned off. We had recovery of vitals. The device carrier was unflexed and positioned back in the descending thoracic aorta. A
transthoracic echocardiogram was performed. The device was removed from the E-Sheath maintaining wire access followed by removal of the E-sheath as we cinched down the perclose devices. There was acceptable hemostasis. The pigtail was withdrawn into
the descending/abdominal and completion aortogram with runoff run-off angiography was performed. There was no stenosis or dissection of bilateral iliofemoral systems. There was acceptable hemostasis of bilateral groins and manual pressure was held
following wire removal. Low dose protamine was administered after checking another ACT.
All instrument, sponge, and needle counts were confirmed to be correct x 2 at the end of the operation. The patient was transferred to the cardiac intensive care unit in stable condition.
I, Dr. Jodie Puga, was present, scrubbed for, and performed all critical elements of this procedure.
Jodie Puga MD, MPH
Cardiothoracic Surgeon
[facility]
This operative dictation was created using the [employer] dictation system. Please excuse any grammatical, typographical, or 'sound alike' errors
[2024-11-21] MEDS: LEVOPHED 250 IV (09:04)
--- NOTE | 2024-11-21 10:45 | PTCARENOTE ---
Received pt from Air Hoist Operator s/p TAVR procedure. Pt is AAOx3 sleepy A fib on the monitor Bp stable. B/L groin dressing sites c/d/i + palpable DP pulses. Neuro intact pupils 2 equal brisk. Pt was instructed on bedrest restriction. and son at
bedside. Call kiser within reach.
[2024-11-21] MEDS: ANCEF 5 IV (15:46)
[2024-11-21] MEDS: LIPITOR 40 MG PO (17:27)
[2024-11-21] MEDS: ZETIA 10 MG PO (17:27)
[2024-11-21] MEDS: HYTRIN 5 MG PO (17:27)
[2024-11-21] MEDS: COREG 25 MG PO (20:15)
[2024-11-22] VITALS: BP 84/52
[2024-11-22 00:02] VITALS: BP 99/45
--- NOTE | 2024-11-22 03:25 | PTCARENOTE ---
Assumed care on pt at 1900, aaox3. continuing with neurological checks and WNL. A fib on tele, HR 60's while awake and 40's during sleep. Pox dropping to high 80's while asleep, O2 applied at 2L via NC. Bp stable. B/L groin dressing sites CDI, no
signs of bleeding or hematoma noted, good distal pulses. Call kiser within reach, in agreement with POC.
[2024-11-22 04:00] VITALS: BP 120/39
--- NOTE | 2024-11-22 05:27 | W.PN.CT ---
Today's Communication / Plan
-
-pod #1
-in a-fib overnight with slow ventricular rate 30s-50s, occasional 2-3 sec pauses (asymptomatic). Had his usual Coreg dose 25 mg last night - will hold this am
-has known LBBB
-appears SOB during conversation. LVEDP 25. Will give 40 iv Lasix this am
-Echo today
-current meds (ASA, Xarelto, Amio, Lasix, Lipitor, Zetia, Diovan, Hytrin, Proscar). Held Coreg
-encourage IS, OOB
Assessment / Plan
-
- Moderate to severe symptomatic aortic valve stenosis- s/p Right trans femoral TAVR with a 26 mm Carvajal Resilia TAVR valve on 11/21/24, pod #1
- Intraop TTE: LVEF was 55�60% pre and post TAVR without inotropic support, no regional wall motion abnormalities or dyskinesia. The aortic valve was well seated without detectable PVL and mean gradient across the new valve was 5 mmHg.
- Acute on chronic diastolic CHF, LVEDP 25
- CAD - 65% mid Circ, occluded RCA w/ L to R collaterals
- Hypertension
- Pre-existing LBBB
- Carotid artery disease
Discussed patient care with: Nursing and Care Team
Subjective
-
Date of Service: November 22, 2024
Objective Data
-
PT 24.1 Sec (11.4-14.6) H 11/15/24 08:55
INR 2.15 11/15/24 08:55
Vital Signs
Vital Signs
Temp Pulse Resp BP Pulse Ox
98.3 F 71 20 121/55 98
11/21/24 19:10 11/21/24 20:15 11/21/24 19:10 11/21/24 20:15 11/22/24 02:53
CT Intake/Output/Weight
11/21/24 11/21/2425
06:59 18:59 06:59
Intake Total 1600 / 1840 240 / 1840
Output Total 850 / 850
Balance 750 / 990 240 / 990
SaO2: 98
Physical Exam
-
General: Awake and AOx3
Cardiovascular: Irregular rate & rhythm, No Murmurs and No Rub
Respiratory: Decreased Breath Sounds
Sternum: Stable
Incision: Clean (groins are cdi, soft, nontender, no hematoma b/l)
Extremities: Edema +2 (2+ DPs b/l)
Abdomen: soft, nondistended, + bowel sounds
Data Reviewed
-
Lab Results: Results Reviewed
Medications: Active Meds Reviewed
Chest X-Ray: Report Reviewed and Image Reviewed
ECG: Report Reviewed and Image Reviewed
[2024-11-22 05:46] LABS: Hematocrit 35.4 % (39.0-52.0); Hemoglobin 11.8 g/dL (13.0-18.0); Mean Corp Hgb Conc. 33.3 g/dL (33.0-37.0); Mean Corpuscular Volume 80.3 fL (80.0-94.0); Platelet Count 162 10^3/uL (130-400); Red Cell Dist. Width 14.7 % (11.5-14.5)
[2024-11-22 06:00] VITALS: BMI 40.7
[2024-11-22 06:17] LABS: Blood Urea Nitrogen 24 mg/dl (9-20); Calcium 8.9 mg/dl (8.4-10.2); Carbon Dioxide 24 mmol/L (22-30); Chloride 109 mmol/L (98-107); Estimated Creatinine Clearance 79 ml/min; Glucose 114 mg/dl (70-99); Potassium 4.3 mmol/L (3.5-5.1); Sodium 137 mmol/L (135-145); eGFR > 60.00
[2024-11-22 07:01] VITALS: BP 145/53
--- NOTE | 2024-11-22 09:56 | W.PN.CARDCBS ---
Addendum entered and electronically signed by Sylvain Araujo MD 11/22/24 11:36:
Attending addendum: Patient seen and examined. PA note reviewed and findings confirmed. He is feeling well. Telemetry demonstrated multiple 2-3 sec pauses. Coreg is on hold for now. RhythmStar Monitor as outpatient. Results to Tim. Would
ambulate in halls and see how he is feeling. If stable can probably be discharged later to day. IF recurring pauses are noted then may monitor overnight.
Original Note:
Today's Communication / Plan
-
Feeling well
Follow heart rates. Holding Coreg. Continue amiodarone
IV Lasix
Echo pending
Plan for rhythm*monitor upon discharge
Impression / Plan
-
Primary [employer] [employer]: Dr. Dumont
Assessment:
- Mod to severe symptomatic s/p Right trans femoral TAVR 26 mm Carvajal Resilia valve 11/21/24
- bradycardia with 2-3 second pauses
- Acute on chronic diastolic CHF, LVEDP 25
- CAD - 65% mid Circ, occluded RCA w/ L to R collaterals
- Persistent atrial fibrillation on amiodarone
- chronic xarelto therapy
- H/o TIA
- Hypertension
- HLD
- Chronic LBBB
- Carotid artery disease
- pulmonary nodules by TAVR CT
- renal lesion by TAVR CT
ECHO 06/06/24: EF 55 to 60%, mild MR, moderate to severe with peak/mean gradient 65/32 mmHg, RINKU 1.3 cm�
ECHO 11/21/2024: Limited echo status post TAVR, valve with peak gradient 9 mmHg and mean gradient 5 mmHg, no AR detected
ECHO 11/22/24: pending
Plan:
- Status post right TF TAVR 11/21/2024
- With slow A-fib overnight, at times heart rates transiently in 20s to 30s, some 2 to 3-second pauses. Patient asymptomatic. Holding outpatient Coreg 25 mg twice daily. Continue p.o. Amio 200 mg daily. If remains with bradycardia/pauses today,
would favor monitoring overnight. He reports his heart rate is normally in 50s
- He has a known chronic left bundle branch block. He is planned for outpatient rhythm*monitor for discharge
- Would consider outpatient evaluation for sleep apnea, if not already completed
- Echo pending
- LVEDP at time of TAVR was 25. Plan for IV Lasix 40 mg this morning then back to outpatient dosing of 40 mg p.o. daily for discharge
- Hemoglobin 11.8. Continue aspirin. Xarelto to be resumed tonight
- Outpatient cardiac follow-up arranged
- Discussed with nursing, TAVR coordinator
Progress Note - [employer] [employer]
Subjective
Date of Service: November 22, 2024
Reports did not sleep well, but denies chest discomfort, palpitations, lightheadedness
Objective
Labs:
11/22/24 05:13
11/22/24 05:13
Labs
Hgb 11.8 g/dL (13.0-18.0) L 11/22/24 05:13
Hct 35.4 % (39.0-52.0) L 11/22/24 05:13
Plt Count 162 10^3/uL (130-400) D 11/22/24 05:13
PT 24.1 Sec (11.4-14.6) H 11/15/24 08:55
INR 2.15 11/15/24 08:55
Sodium 137 mmol/L (135-145) 11/22/24 05:13
Potassium 4.3 mmol/L (3.5-5.1) 11/22/24 05:13
BUN 24 mg/dl (9-20) H 11/22/24 05:13
Creatinine 1.0 mg/dL (0.7-1.3) 11/22/24 05:13
Glucose 114 mg/dl (70-99) H 11/22/24 05:13
Vital Signs and I&O:
Vital Signs
Temp Pulse Resp BP Pulse Ox
98.3 F 48 18 145/53 97
11/22/24 06:58 11/22/24 07:01 11/22/24 06:58 11/22/24 07:01 11/22/24 07:01
Vital Signs
Temp Pulse Resp BP Pulse Ox
98.3 F 48 18 145/53 97
11/22/24 06:58 11/22/24 07:01 11/22/24 06:58 11/22/24 07:01 11/22/24 07:01
Intake & Output
11/20/24 11/21/24 11/22/24 11/23/24
07:59 07:59 07:59 07:59
Intake Total 1840 / 1840
Output Total 850 / 850 300 / 300
Balance 990 / 990 -300 / -300
Physical Exam
Physical Exam
GEN: No distress, awake, alert, oriented x3. Obese
HEENT: supple, anicteric, mmm, EOMI
LUNGS: Few scattered crackles, no wheezes
CV: irreg and zach, S1/S2, 1/6 syst LSB
ABD: soft, BS+, NT/ND
EXT: No cyanosis, clubbing. trace edema of B/L LE
NEURO: Gross non-focal
SKIN: Warm, pink, dry. No rash
--- NOTE | 2024-11-22 10:19 | W.PN.ANS.POP ---
Anesthesia Post Operative
- Anesthesia Post Op Note
Vital Signs Stable-See Nursing Note: Yes
Airway Patent: Yes
Adequate Pain Control: Yes
Change in Mental Status: No
Current Postoperative Nausea & Vomiting: No
Anesthesia Complications: No
General Anesthetic Recall: No
Unplanned Admission: No
Post Op Hydration Adequate: Yes
[2024-11-22] MEDS: THERAGRAN 1 TABLET PO (10:21)
[2024-11-22] MEDS: DIOVAN 320 MG PO (10:21)
[2024-11-22] MEDS: PACERONE 200 MG PO (10:21)
[2024-11-22] MEDS: LASIX 40 MG IV (10:22)
[2024-11-22] MEDS: PROSCAR 5 MG PO (10:22)
[2024-11-22 12:00] VITALS: BP 150/67; BP 154/63; PULSE 59; O2SAT 92; O2SAT 93
--- NOTE | 2024-11-22 13:50 | W.DCSUMMARY ---
Discharge Summary
Discharge Data
Date of Admission: 11/21/24
Date of Discharge: 11/22/24
-
Pending Results: No
Hospital Course
Primary care physician: Mary Kate Perez
Outpatient dolly operator: Jaspal Dumont
Inpatient consultants: [facility]
Procedures:
1. TAVR
Primary Diagnosis:
1. Severe aortic stenosis
Secondary Diagnoses:
1. Acute on chronic diastolic CHF, LVEDP 25
2. CAD - 65% mid Circ, occluded RCA w/ L to R collaterals
3. Hypertension
4. Pre-existing LBBB
5. Chronic atrial fibrillation on Xarelto
6. Right Carotid artery disease (50-69%)
7. Class III obesity (BMI 40.7)
8. BPH
9. Chron's
10. Acute postoperative sinus bradycardia with 3-second pause
HPI: 79-year-old male was electively admitted on 11/21/2024 for TAVR due to severe aortic stenosis.
Hospital course: Patient was taken to the [facility] Worker and underwent a right trans femoral TAVR #26 mm Carvajal Resilia TAVR valve by Drs. Puga and Sylvain Araujo. Patient had no ECG changes and was on Levophed for short while while in recovery. A.m.
dose of Coreg was held due to sinus bradycardia with heart rate in the 40s to 50s and a max of 3-second pause. Morning ECG with chronic atrial fibrillation multiple branch block pattern. Patient desires Lasix 40 mg IV. Coreg will be held on
discharge and rhythm monitor applied per discussion with cardiology. Morning chest x-ray reported mild elevation of the right hemidiaphragm. No pleural effusion or pneumothorax. Patient ambulated in the halls without further rhythm issues and is
deemed stable for discharge home.
Home medication changes:
Stop Coreg
Discharge Plan
-
Patient Disposition: Home (Routine Discharge)
Discharge Diagnosis/Procedures: TF-TAVR
Condition: Good
Diet: Low Cholesterol and 2 Gram Sodium
Activity: As tolerated
Driving Restrictions: No driving for 1 week
Bathing Restrictions: OK to Shower
Others Tests: 30 Day Follow Up Echocardiogram is scheduled at [facility] on 12/04/24 @ 8[facility]20 am [facility]
Other Services: Cardiac Rehab
Wound Care: Please do not apply powders, creams or lotions to groin areas. Monitor for increased pain, swelling, redness or drainage. Notify your doctor if any occur.
Specialty Instructions: Weigh Daily- Call MD for wt gain/loss 3 lbs overnight/5 lbs in 1 week
Stand Alone Forms: DC Inst - TransFemoral (TAVR)
Referrals:
CT Transitional Care Nurse [Outside] - in one to two days
Referral Note:
The Cardiothoracic Transitional Care Nurse will call you to set up a visit in 1-2 days.
[facility]. Cardiac Rehab [Outside] - 01/07/25 1:00 pm
Referral Note: Cardiac Rehab Orientation appointment is on Monday01/07/25 at 1pm.
The Cardiac Rehab gym is located on the first floor of the [facility].
Keyla Perez DO [Family Provider, Family Practice] - in four to six weeks
Referral Note: Please make an appointment in four to six weeks.
Daxa Taylor CRNP [Specified Professional Personl, Cardiology] - 12/23/24 10:20 am
Additional Discharge Medication Instructions: Stop Coreg due to bradycardia
Prescriptions:
New
acetaminophen 325 mg Tablet
650 mg PO Q4HPRN PRN (Reason: SWANSON, mild pain, or fever >101F) Qty: 0 0RF
Continued
terazosin 5 MG capsule
5 mg PO QPM
finasteride 5 MG tablet
5 mg PO DAILY
Xarelto 20 MG tablet
20 mg PO QPM Qty: 30 11RF
multivitamin Tablet
1 tab PO DAILY
atorvastatin 40 mg Tablet
40 mg PO QPM
amiodarone 200 mg Tablet
200 mg PO DAILY
valsartan 320 mg Tablet
320 mg PO DAILY
calcium polycarbophil [FiberCon] 625 mg Tablet
625 mg PO QPM
ezetimibe 10 mg Tablet
10 mg PO QPM
cholecalciferol (vitamin D3) [Vitamin D3] 25 mcg (1,000 unit) Tablet
25 mcg PO DAILY
Prevagen
1 dose PO DAILY
furosemide [Lasix] 40 mg tablet
40 mg PO DAILY Qty: 90 5RF
Discontinued
aspirin 81 MG tablet,delayed release (DR/EC)
81 mg PO QPM
carvedilol 25 mg Tablet
25 mg PO BID
Discharge Orders:
Discharge Patient (As Directed); Ordered 11/22/24
Ordered By: Eneida Bolaños
Care Plan Goals
Care Plan Goals:
Problem: Readiness for enhanced knowledge related to diagnosis and treatment plan
Goal: Understand your diagnosis and treatment plan needs, including medications if applicable.
Instructions: Know your diagnosis, underlying causes and treatment plan options, including medications if applicable. Consult with your health care team to learn about your diagnosis and treatment plan, including medications if applicable.
Discharge Date and Time
Print Language: MOHAWK
--- NOTE | 2024-11-22 15:43 | PTCARENOTE ---
Pt was discharged to home with via wheelchair escorted by staff . Discharge instructions provided including next dose due with meds. Pt was instructed to hold Coreg until post op follow up appointment. Home media monitor was placed on pt and
was sent home with instructions and tinsmith helper.
== END 2024-11-22 15:51 | disposition home or self-care (01) | DRG 266 ==
LOC: IVU 04:56
PROVIDERS: Physician Assistant Medical; ADMITTING PHYSICIAN Thoracic Surgery (Cardiothoracic Vascular Surgery); ATTENDING PHYSICIAN Student in an Organized Health Care Education/Training Program; CONSULT PHYSICIAN Internal Medicine Interventional Cardiology; FAMILY PHYSICIAN Family Medicine
PROC: 02RF38Z Replacement of Aortic Valve with Zooplastic Tissue, Percutaneous Approach (ICD-10-PCS; 2024-11-21)
DX: I35.0 Nonrheumatic aortic (valve) stenosis (principal); I50.33 Acute on chronic diastolic (congestive) heart failure; I48.20 Chronic atrial fibrillation, unspecified; Z68.41 Body mass index [BMI] 40.0-44.9, adult; I11.0 Hypertensive heart disease with heart failure; I25.10 Atherosclerotic heart disease of native coronary artery without angina pectoris; I44.7 Left bundle-branch block, unspecified; I65.21 Occlusion and stenosis of right carotid artery; E66.813 Obesity, class 3; N40.0 Benign prostatic hyperplasia without lower urinary tract symptoms; R00.1 Bradycardia, unspecified; Z79.01 Long term (current) use of anticoagulants
CPT/HCPCS: 33361; 36415; 71045; 71046; 80048; 80053; 81003; 81015; 82248; 83036; 83880; 85025; 85027; 85347; 85610; 86850; 86900; 86901; 87070; 93005; 93308; 93321; 93325; C1760; C1769; C1894; Q9967

== ENCOUNTER → 2024-12-05 08:01 | Outpatient (REF) | payer OTHER, SELFPAY | LOC: RAD 08:01 | PROVIDERS: ATTENDING PHYSICIAN Nuclear Medicine Nuclear Cardiology; FAMILY PHYSICIAN Family Medicine | DX: I77.9 Disorder of arteries and arterioles, unspecified (principal) | CPT/HCPCS: 93880 ==

== ENCOUNTER → 2024-12-10 14:41 | Outpatient (REF) | payer OTHER, SELFPAY | LOC: HWRCS 14:41 | PROVIDERS: ATTENDING PHYSICIAN Nuclear Medicine Nuclear Cardiology; FAMILY PHYSICIAN Family Medicine | DX: I35.0 Nonrheumatic aortic (valve) stenosis (principal); I25.10 Atherosclerotic heart disease of native coronary artery without angina pectoris | CPT/HCPCS: 93306 ==

== ENCOUNTER 2024-12-19 07:01 | Day surgery (SDC) | payer OTHER, SELFPAY ==
[2024-12-19 07:58] VITALS: BMI 40.0
--- NOTE | 2024-12-19 09:06 | ITS.CL.CARDI ---
Meat Counter Worker - Cardioversion
Cardioversion
Procedure Report:
Date of Procedure: 12/19/24
Procedure: Cardioversion
Indication: Symptomatic atrial fibrillation
Performing Physician: Tank Melendez MD
Technique: The patient was brought to the holding area. Signed informed consent was obtained. A time out was called and performed. The patient was anesthetized by the anesthesia service. Anticoagulation status was reviewed and appropriate. R2 pads
were placed anteriorly and posteriorly. A 200 J synchronized biphasic shock restored normal sinus rhythm without significant bradycardia. There were no complications.
Conclusion: Uncomplicated cardioversion from atrial fibrillation to sinus rhythm.
Recommendation: Routine post cardioversion care. Continue intermediate designer anticoagulation.
== END 2024-12-19 09:53 | disposition home or self-care (01) ==
LOC: CATH 07:01
PROVIDERS: ATTENDING PHYSICIAN Internal Medicine Cardiovascular Disease; FAMILY PHYSICIAN Family Medicine; OTHER PHYSICIAN Nuclear Medicine Nuclear Cardiology
DX: I48.91 Unspecified atrial fibrillation (principal); I44.0 Atrioventricular block, first degree; I44.7 Left bundle-branch block, unspecified; Z79.01 Long term (current) use of anticoagulants
CPT/HCPCS: 92960; 93005

== ENCOUNTER → 2025-01-15 09:45 | Outpatient (REF) | payer OTHER, SELFPAY | LOC: HWRAD 09:45 | PROVIDERS: ATTENDING PHYSICIAN Internal Medicine Critical Care Medicine; FAMILY PHYSICIAN Family Medicine | DX: R91.8 Other nonspecific abnormal finding of lung field (principal); R59.0 Localized enlarged lymph nodes | CPT/HCPCS: 71250 ==

== ENCOUNTER 2025-01-31 13:21 | Outpatient (RCR) | payer OTHER, SELFPAY | END 2025-01-31 23:59 | disposition home or self-care (01) | LOC: CRHB 13:21 | PROVIDERS: ATTENDING PHYSICIAN Nuclear Medicine Nuclear Cardiology; FAMILY PHYSICIAN Family Medicine | DX: I25.10 Atherosclerotic heart disease of native coronary artery without angina pectoris (principal); Z95.4 Presence of other heart-valve replacement (principal) | CPT/HCPCS: G0422; G0423 ==

== ENCOUNTER 2025-03-03 14:19 | Outpatient (RCR) | payer OTHER, SELFPAY | END 2025-03-03 23:59 | disposition home or self-care (01) | LOC: CRHB 14:19 | PROVIDERS: ATTENDING PHYSICIAN Nuclear Medicine Nuclear Cardiology; FAMILY PHYSICIAN Family Medicine | DX: Z95.4 Presence of other heart-valve replacement (principal); I25.10 Atherosclerotic heart disease of native coronary artery without angina pectoris (principal) | CPT/HCPCS: G0422; G0423 ==